=== PATIENT | female | born 1970 | race Caucasian/White ===

== ENCOUNTER → 2016-09-23 | Outpatient (CLI) | payer OTHER ==
--- NOTE | 2016-09-24 11:25 | MM ---
Reason for exam: screening (asymptomatic). Last mammogram was performed 2 years and 9 months ago. History: Family history of breast cancer in mother at age 67. Took hormonal contraceptives for 2 years 1 month beginning at age 37. Physical Findings: A clinical breast exam by your physician is recommended on an annual basis and results should be correlated with mammographic findings. MG Screening Mammo w CAD Bilateral CC and MLO view(s) were taken. Prior study comparison: January 03, 2014, bilateral MG screening mammo w CAD. September 02, 2007, bilateral diagnostic digital mammog. There are scattered fibroglandular densities. There is no discrete abnormality. No significant changes when compared with prior studies. ASSESSMENT: Negative, BI-RAD 1 RECOMMENDATION: Routine screening mammogram of both breasts in 1 year.
== END ==
LOC: RADMAMWWP 15:28
PROVIDERS: ATTEND Family Medicine
DX: Z12.31 Encounter for screening mammogram for malignant neoplasm of breast (principal); Z80.3 Family history of malignant neoplasm of breast

== ENCOUNTER 2016-10-09 08:25 | Emergency (ER) | payer OTHER ==
[2016-10-09 09:02] VITALS: BP 161/100; PULSE 80; RESP 20; TEMP 98.7
--- NOTE | 2016-10-09 09:19 | XR ---
EXAMINATION TYPE: XR shoulder complete BILAT DATE OF EXAM: 10/09/2016 9:10 AM CLINICAL HISTORY: pain TECHNIQUE: Three views of the right shoulder are obtained. COMPARISON: None FINDINGS: Nondisplaced fracture suspected involving the greater humeral tuberosity. The acromioclavic ular and glenohumeral joint spaces appear within normal limits. Subcoracoid loose body noted measurin g 1.4 x 8.4 cm. The visualized ribs are intact and unremarkable. IMPRESSION: 1. Nondisplaced greater humeral tuberosity fracture. ICD 10 closed FRACTURE, INITIAL EVALUATION EXAMINATION TYPE: XR shoulder complete BILAT DATE OF EXAM: 10/09/2016 9:10 AM CLINICAL HISTORY: pain COMPARISON: NONE TECHNIQUE: Three views of the left shoulder are obtained. FINDINGS: There is no acute fracture/dislocation evident. The acromioclavicular and glenohumeral imtiaz int spaces appear within normal limits. The visualized ribs are intact and unremarkable. IMPRESSION: 1. There is no acute fracture or dislocation. ICD 10 NO FRACTURE, INITIAL EVALUATION
--- NOTE | 2016-10-09 09:41 | ED ---
Upper Extremity HPI - General Chief Complaint: Extremity Injury, Upper Stated Complaint: Fall [facility] Time Seen by Provider: 10/09/16 08:51 Source: patient, RN notes reviewed Mode of arrival: ambulatory Limitations: no limitations - History of Present Illness Initial Comments: 46-year-old female presents emergency Department with chief complaint of right shoulder pain, left shoulder pain. Patient states she tripped over signed fell. Patient states that she fell into a wall. Patient has primary right shoulder pain but some LOC. Patient had priors shoulder surgery. Patient states that she did not hit her head no LOC. No paresthesias. - Related Data Home Medications Medication Instructions Recorded Confirmed Metoprolol Succinate (ER) [Toprol 50 mg PO HS 09/04/10/09/16 Xl] Previous Rx's Medication Instructions Recorded traMADol HCl [Ultram] 50 mg PO Q6H PRN #20 tab 10/09/16 Allergies Allergy/AdvReac Type Severity Reaction Status Date / Time codeine AdvReac Nausea & Verified 10/09/16 09:30 Vomiting hydrocodone bitartrate AdvReac Nausea & Verified 10/09/16 09:30 [From [place]] Vomiting Review of Systems ROS Statement: Those systems with pertinent positive or pertinent negative responses have been documented in the HPI. ROS Other: All systems not noted in ROS Statement are negative. Past Medical History Past Medical History: Hypertension Additional Past Medical History / Comment(s): PCOS, urinary incontinence History of Any Multi-Drug Resistant Organisms: None Reported Past Surgical History: Bariatric Surgery, Cholecystectomy Additional Past Surgical History / Comment(s): left rotator cuff, bicep tear right arm, lap band Past Anesthesia/Blood Transfusion Reactions: Motion Sickness, Postoperative Nausea & Vomiting (PONV) Additional Past Anesthesia/Blood Transfusion Reaction / Comment(s): mother- ileus post op Past Psychological History: No Psychological Hx Reported Smoking Status: Never smoker Past Alcohol Use History: Occasional Past Drug Use History: None Reported - Past Family History Mother Family Medical History: Cancer General Exam Limitations: no limitations General appearance: alert, in no apparent distress Neck exam: Present: normal inspection, full ROM. Absent: tenderness, meningismus, lymphadenopathy Respiratory exam: Present: normal lung sounds bilaterally. Absent: respiratory distress, wheezes, rales, rhonchi, stridor Cardiovascular Exam: Present: regular rate, normal rhythm, normal heart sounds. Absent: systolic murmur, diastolic murmur, rubs, gallop, clicks Extremities exam: Present: other (Times with palpation of the right shoulder limited range of motion secondary pain neurovascular intact no iris deformity, left shoulder limited range of motion secondary pain no obvious deformity no ac tenderness neurovascular intact) Back exam: Present: full ROM. Absent: tenderness Course Vital Signs 10/09/16 08:54 Temperature 98.7 F Pulse Rate 80 Respiratory 20 Rate Blood Pressure 161/100 O2 Sat by Pulse 97 Oximetry Medical Decision Making - Medical Decision Making 46-year-old female presented for fall. Patient has a right humerus fracture. She'll be placed in a sling follow-up with workman's comp and orthopedic. Return parameters were discussed. Disposition Clinical Impression: Right humeral fracture, Sprain of left shoulder Disposition: HOME SELF-CARE Condition: Stable Instructions: Arm Fracture in Adults (ED) Additional Instructions: Wear sling and follow-up with workman's comp/orthopedics.Please return to the Emergency Department if symptoms worsen or any other concerns. Prescriptions: traMADol HCl [Ultram] 50 mg PO Q6H PRN #20 tab PRN Reason: Pain Time of Disposition: 09:40
== END 2016-10-09 09:57 | disposition home or self-care (01) ==
LOC: EC 08:25
DX: S42.254A Nondisplaced fracture of greater tuberosity of right humerus, initial encounter for closed fracture (principal); S43.402A Unspecified sprain of left shoulder joint, initial encounter; I10 Essential (primary) hypertension; Z79.899 Other long term (current) drug therapy; Z88.5 Allergy status to narcotic agent; W01.0XXA Fall on same level from slipping, tripping and stumbling without subsequent striking against object, initial encounter; Y92.69 Other specified industrial and construction area as the place of occurrence of the external cause; Y99.0 Civilian activity done for income or pay
CPT/HCPCS: 99283

== ENCOUNTER → 2016-10-16 | Outpatient (CLI) | payer OTHER ==
--- NOTE | 2016-10-16 16:39 | US ---
EXAMINATION TYPE: US pelvis complete transvag DATE OF EXAM: 10/16/2016 4:27 PM COMPARISON: NONE CLINICAL HISTORY: R10.9 Abd Pain R74.8 Elevated liver enzymes. TECHNIQUE: Transvaginal (TV) and Transabdominal (TA) Date of LMP: unknown, patient states she does not have regular cycles EXAM MEASUREMENTS: Uterus: 15.6 x 10.0 x 12.5 cm Endometrial Stripe: 6.5 cm Right Ovary: 3.2 x 3.3 x 2.9 cm Left Ovary: 3.1 x 2.3 x 2.2 cm 1. Uterus: Anteverted enlarged. Heterogenous echotexture. 2. Endometrium: severely thickened 3. Right Ovary: wnl 4. Left Ovary: wnl 5. Bilateral Adnexa: wnl 6. Posterior cul-de-sac: no free f luid IMPRESSION: 1. Marked irregular thickening of the endometrium. Hysteroscopy is recommended to exclude underlying malignancy. Associated uterine enlargement.
--- NOTE | 2016-10-16 16:41 | US ---
EXAMINATION TYPE: US abdomen complete DATE OF EXAM: 10/16/2016 3:59 PM COMPARISON: NONE CLINICAL HISTORY: R10.9 Abd Pain R74.8 Elevated liver enzymes. EXAM MEASUREMENTS: Liver Length: 16.6 cm Gallbladder Wall: Surgically absent cm CBD: 0.5 cm Spleen: 11.5 cm Right Kidney: 10.0 x 4.4 x 5.7 cm Left Kidney: 10.6 x 5.7 x 5.9 cm large patient body habitus Pancreas: wnl Liver: difficult to penetrate Gallbladder: Surgically absent CBD: wnl Spleen: wnl Right Kidney: No hydronephrosis or masses seen Left Kidney: No hydronephrosis or masses seen Upper IVC: wnl Abd Aorta: wnl The liver is coarse in its overall echo appearance. The intrahepatic portion of the IVC and proximal abdominal aorta are within normal limits. There is no evidence of cholelithiasis. Common bile duct is unremarkable. The visualized portions of the pancreas are homogenous. The spleen is unremarkable . Kidneys are symmetric and free of hydronephrosis. No renal lesions are seen. IMPRESSION: 1. Coarse echo appearance throughout the liver which may reflect fatty hepatic infiltration. Examinat ion limited for visualization of underlying lesions.
== END | disposition home or self-care (01) ==
LOC: RADUSWWP 15:37
PROVIDERS: ATTEND Family Medicine
DX: N85.2 Hypertrophy of uterus (principal); R93.8 Abnormal findings on diagnostic imaging of other specified body structures; R93.2 Abnormal findings on diagnostic imaging of liver and biliary tract; R10.9 Unspecified abdominal pain; R74.8 Abnormal levels of other serum enzymes; Z88.5 Allergy status to narcotic agent
CPT/HCPCS: 76700; 76830; 76856

== ENCOUNTER → 2016-11-12 | Outpatient (CLI) | payer OTHER ==
--- NOTE | 2016-11-12 08:04 | MR ---
EXAMINATION TYPE: MR shoulder LT wo con DATE OF EXAM: 11/12/2016 7:54 AM COMPARISON: Plain films of the shoulder dated 10/24/2016 HISTORY: Lt shoulder pain, weakness, decreased range of motion TECHNIQUE: Multiplanar, multisequence imaging of the left shoulder is performed without contrast. FINDINGS: There is no evidence of an os acromiale. There is [id number] hypertrophic and inflammatory changes in the left AC joint. There is a Hill-Sachs deformity as well as a soft [place]. This is secondary to a previous dislocatio n of the left shoulder. There is tendinosis involving the supraspinatus tendon. No definite rotator cuff tear is seen. There is some decentering of the humeral head with respect to the glenoid. There is a tear in the anterior labrum in addition to the soft [place] involving the inferior labrum. The biceps tendon is normally situated within the biceps tendon groove. There is an intrasubstance te ar of the biceps tendon at the level of the biceps anchor. IMPRESSION: 1. SEQUELA OF PREVIOUS SHOULDER DISLOCATION INCLUDING A HILL-SACHS DEFORMITY AND SOFT BANKART LESION. 2. UNDISPLACED TEAR OF THE ANTERIOR GLENOID LABRUM. 3. INTRASUBSTANCE TEAR OF THE BICEPS TENDON AT THE LEVEL OF THE BICEPS ANCHOR. 4. TENDINOSIS OF THE SUPRASPINATUS TENDON. 5. MILD TO MODERATE HYPERTROPHIC AND INFLAMMATORY CHANGE IN THE LEFT AC JOINT.
== END | disposition home or self-care (01) ==
LOC: RADMRIMAIN 07:16
PROVIDERS: ATTEND Orthopaedic Surgery
DX: S43.005S Unspecified dislocation of left shoulder joint, sequela (principal); S46.212A Strain of muscle, fascia and tendon of other parts of biceps, left arm, initial encounter; S43.402A Unspecified sprain of left shoulder joint, initial encounter; M21.922 Unspecified acquired deformity of left upper arm; M67.912 Unspecified disorder of synovium and tendon, left shoulder; M89.312 Hypertrophy of bone, left shoulder; M89.8X1 Other specified disorders of bone, shoulder

== ENCOUNTER → 2017-01-28 | Outpatient (CLI) | payer OTHER ==
[2017-01-28 13:14] LABS: EKG EKG PERFORMED
[2017-01-28 13:44] LABS: Anion Gap 11 mmol/L; Carbon Dioxide 24 mmol/L (22-30); Chloride 108 mmol/L (98-107); Sodium 143 mmol/L (137-145)
[2017-01-28 13:52] LABS: Anisocytosis Slight; Basophils % (A) 1 %; CH 24.3; CHCM 28.8; Eosinophils # (A) 0.2 k/uL (0-0.7); Eosinophils % (A) 3 %; HCT 38.1 % (34.0-46.0); HDW 3.05; HGB 10.9 gm/dL (11.4-16.0); Hypochromasia Marked; Luc # (Auto) 0.15; Luc % (Auto) 2; Lymphocytes # (A) 1.7 k/uL (1.0-4.8); Lymphocytes % (A) 22 %; MCH 24.2 pg (25.0-35.0); MCHC 28.7 g/dL (31.0-37.0); MCV 84.6 fL (80.0-100.0); Monocytes # (A) 0.4 k/uL (0-1.0); Monocytes % (A) 5 %; Neutrophils # (A) 5.2 k/uL (1.3-7.7); Neutrophils % (A) 67 %; RDW 16.7 % (11.5-15.5); WBC 7.7 k/uL (3.8-10.6); WBC (Perox) 7.72
== END | disposition home or self-care (01) ==
LOC: LABWHC1 13:01
PROVIDERS: ATTEND Orthopaedic Surgery
DX: Z01.818 Encounter for other preprocedural examination (principal); R00.1 Bradycardia, unspecified
CPT/HCPCS: 36415; 80051; 85025; 93005

== ENCOUNTER 2017-01-30 05:56 | Day surgery (SDC) | payer OTHER ==
[~2017-01-30 05:56] MED LIST: DEXAMETHASONE SOD PHOSPHATE 10 MG/ML 1 ML VIAL IV ONE; HYDROmorphone 1 MG/ML 1 ML SYRINGE IVP PRN; LACTATED RINGERS 1,000 ML IV SCH; ONDANSETRON 4 MG/2 ML VIAL IVP ONE; ceFAZolin 2 GM in SODIUM CHLORIDE 0.9% 100 ML IVPB ONE
[2017-01-30 06:28] VITALS: RESP 16
[2017-01-30] MEDS ORDERED: LIDOCAINE 1% 20 ML VIAL (10MG/ML) FOR IV START INTRADERMA ONE (06:39)
[2017-01-30] MEDS ORDERED: MIDAZOLAM 2 MG/2 ML VIAL IV ONE (07:09)
[2017-01-30] MEDS ORDERED: fentaNYL (PF) 50 MCG/ML 2 ML AMP IV ONE (07:10)
--- NOTE | 2017-01-30 07:19 | P.HPOR ---
History of Present Illness H&P Date: 01/30/17 Chief Complaint: Left shoulder pain 46-year-old patient seen with progressive left shoulder pain. After treatment options were discussed she elected to proceed with arthroscopy. Past Medical History Past Medical History: Hypertension Additional Past Medical History / Comment(s): PCOS, History of Any Multi-Drug Resistant Organisms: None Reported Past Surgical History: Bariatric Surgery, Bladder Surgery, Cholecystectomy, Hysterectomy, Orthopedic Surgery Additional Past Surgical History / Comment(s): left rotator cuff, bicep tear right arm, lap band, BLADDER SUSPENSION Past Anesthesia/Blood Transfusion Reactions: Family History of Problems w/ Anesthesia, Motion Sickness, Postoperative Nausea & Vomiting (PONV) Additional Past Anesthesia/Blood Transfusion Reaction / Comment(s): mother- ileus post op Past Psychological History: No Psychological Hx Reported Smoking Status: Never smoker Past Alcohol Use History: Occasional Past Drug Use History: None Reported - Past Family History Mother Family Medical History: Cancer Medications and Allergies Home Medications Medication Instructions Recorded Confirmed Type Metoprolol Succinate (ER) [Toprol 50 mg PO HS 09/05/15 01/30/17 History Xl] Allergies Allergy/AdvReac Type Severity Reaction Status Date / Time codeine AdvReac Nausea & Verified 01/30/17 06:25 Vomiting Physical Examination Osteopathic Statement: *. No significant issues noted on an osteopathic structural exam other than those noted in the History and Physical/Consult. - Shoulder left Tenderness with palpation: anterior, bicipital groove ROM: abduction: 80 degrees ROM: forward flexion: 80 degrees ROM: external rotation: 30 degrees Strength: forward flexion: 4/5 Strength: extension: 4/5 Strength: external rotation: 3/5 Tests: internal impingement tests: positive Results X-ray left shoulder: no acute fracture MRI left shoulder: Labral tear, partial biceps tendon tear Assessment and Plan Plan: Assessment: Left shoulder impingement with labral tear and partial biceps tendon tear Plan: Left shoulder arthroscopy with subacromial decompression, labral debridement versus repair, probable biceps tendon release and debridement
[2017-01-30] MEDS ORDERED: ROPIVACAINE 5 MG/ML 30 ML VIAL ONE (07:25)
[2017-01-30] MEDS ORDERED: ePHEDrine SULFATE/0.9% NACL/PF 50 MG/5 ML SYRINGE IV ONE (07:25)
[2017-01-30] MEDS ORDERED: SUCCINYLCHOLINE CHLORIDE 100 MG/5 ML SYR IV ONE (07:25)
[2017-01-30] MEDS ORDERED: PROPOFOL 10 MG/ML 20 ML VIAL IV ONE (07:25)
[2017-01-30] MEDS ORDERED: LIDOCAINE 1% INJ 10MG/ML (20 ML MDV) ONE (07:25)
[2017-01-30] MEDS ORDERED: fentaNYL (PF) 50 MCG/ML 2 ML AMP ONE (07:25)
[2017-01-30] MEDS ORDERED: MIDAZOLAM 2 MG/2 ML VIAL ONE (07:25)
[2017-01-30] MEDS ORDERED: LIDOCAINE 2%-EPI 1:100,000 20 ML VIAL ONE (07:25)
[2017-01-30] MEDS ORDERED: LACTATED RINGERS 1,000 ML IV ONE (08:05)
[2017-01-30 08:52] VITALS: TEMP 97.4
--- NOTE | 2017-01-30 08:52 | P.OP ---
Date of Procedure: 01/30/17 Preoperative Diagnosis: Left shoulder impingement Postoperative Diagnosis: 1. Left shoulder impingement 2. 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 Left shoulder superficial anterior/superior labral tear 4. Left shoulder partial biceps tendon tear 5. Left shoulder superficial rotator cuff tear Procedure(s) Performed: 1. Left shoulder arthroscopic subacromial decompression 2. Left shoulder arthroscopic chondroplasty humeral head 3. Left shoulder arthroscopic debridement labral tear 4. Left shoulder arthroscopic biceps tenotomy 5. Left shoulder arthroscopic debridement superficial partial rotator cuff tear Implants: Anesthesia: ELISABETH, regional Surgeon: Leonel Hager Estimated Blood Loss (ml): 10 Pathology: none sent Condition: stable Disposition: PACU Indications for Procedure: 47-year-old patient seen with left shoulder pain. After having treatment options discussed, she elected to proceed with arthroscopy. Operative Findings: see description of procedure Description of Procedure: Patient underwent a shoulder block by department of anesthesia. The patient was then taken to the operative suite. The patient underwent a general anesthetic by the department of anesthesia. The patient was placed into a lateral position and secured. There was appropriate padding of the bony prominence. Left shoulder was then prepped and draped in normal sterile orthopedic fashion. We placed the extremity in 10 pounds of longitudinal traction. A posterior incision was now made for a posterior working portal site. The trocar and cannula were inserted into the glenohumeral joint. Arthroscopy was initiated. Spinal needle was now inserted anteriorly, to ascertain the anterior working portal site. An incision was now made in that area, a trocar was inserted followed by a probe. There were areas of grade 4 chondromalacia involving the humeral head with exposed bone osteochondral tears. There were grade 2/3, she changes of the glenoid fossa no osteochondral tears were present there. There was superficial tearing of the anterior superior labrum. Partial tearing long head biceps tendon. Rotator cuff appeared intact from glenohumeral side. There were no loose bodies. I performed an arthroscopic chondroplasty of the humeral head getting down to stable osteochondral tissue. I performed an arthroscopic biceps tenotomy. I debrided the labral tears down to stable tissue. The residual labrum was probed and found to be stable. The residual osteochondral surface of the humeral head was found to be stable although again we noted areas of exposed bone. At this point instruments removed from the glenohumeral joint. Utilizing the posterior working portal site, the trocar and cannula were inserted into the subacromial space. Arthroscopy initiated. I made an incision 2 fingerbreadths lateral to the acromion. I introduced my trocar followed by my ArthroCare ablator. I now began ablating thick subacromial bursal tissue, which exposed the undersurface of the anterior acromion. This was diminished subacromial space. There was a very prominent anterior acromion. A motorized bur was introduced and a subacromial decompression was performed. I noted good decompression of subacromial space at this point. I turned my attention to the rotator cuff tendon. There was some superficial tearing distal supraspinatus. I debrided that with a motorized shaver. The residual rotator cuff looks stable. I injected 1 mL Allogen intra-articular. Instruments now removed from the portal sites. All portal sites were approximated with nylon suture. Sterile dressings were applied followed by a shoulder immobilizer. David MATTHEWS assisted with the procedure. The patient was awakened, transferred to a bed, and taken to recovery in stable condition.
[2017-01-30] MEDS ORDERED: ENALAPRILAT 1.25 MG/ML 1 ML VIAL IVP ONE ×2 (10:07→10:22)
[2017-01-30 11:02] VITALS: BP 137/81; PULSE 74
--- NOTE | 2017-01-30 16:09 | P.ONQ ---
Anesthesiology Proc Note - PNB - Peripheral Nerve Block Performed Left Interscalene Single Time Out Performed: Yes Procedure Start Time: :16 Procedure Stop Time: : Indication: Acute Post-Operative Pain, Requested by physician Preparation: Sterile Prep Position: Supine Needle Size: 100mm (4") Needle Gauge: 21 Technique: Ultrasound Injectate: 0.5% Ropivacaine (see comment for volume) (ropi .5% 20cc plus xylo 2% with epi 15cc) Blood Aspirated: No Pain Paresthesia on Injection Noted: No Resistance on Injection: Normal Events: Uneventful and Well Tolerated
== END 2017-01-30 11:39 | disposition home or self-care (01) ==
LOC: OR 05:56
PROVIDERS: ATTEND Orthopaedic Surgery
DX: M75.112 Incomplete rotator cuff tear or rupture of left shoulder, not specified as traumatic (principal); M75.42 Impingement syndrome of left shoulder; M94.8X1 Other specified disorders of cartilage, shoulder; M94.212 Chondromalacia, left shoulder; M67.88 Other specified disorders of synovium and tendon, other site; I10 Essential (primary) hypertension; E28.2 Polycystic ovarian syndrome; Z98.84 Bariatric surgery status; Z90.710 Acquired absence of both cervix and uterus; Z79.899 Other long term (current) drug therapy
CPT/HCPCS: 64415; 29827; 29826; C1765; J2250; J1100; J0690; J2405; J2001; J3010; J2795; J0330; J2704

== ENCOUNTER → 2017-04-01 | Outpatient (CLI) | payer OTHER ==
--- NOTE | 2017-04-01 10:06 | MR ---
EXAMINATION TYPE: MR shoulder RT wo con DATE OF EXAM: 04/01/2017 COMPARISON: plain film 01/29/2017 HISTORY: Right shoulder pain TECHNIQUE: Multiplanar, multisequence imaging of the shoulder is performed without contrast. FINDINGS: Rotator Cuff: Somewhat attenuated along the anterior margin shows abnormal increased signal which may be indicative of a partial full-thickness tear Acromioclavicular Joint: Hypertrophic changes present causing minimal mass effect on the musculotendi nous junction of supraspinatus. Glenohumeral Joint: Remodeling present at the glenohumeral joint compatible with osteoarthritis. Labrum: Inferior labrum shows some linear increased signal suspicious for tear, the bony labrum shows subchondral geode formation. Suspect some labral foramen present at the superior anterior labrum. Biceps Tendon: The long head of biceps is perched anteriorly, increased signal present in the overlyi ng aponeurosis. There is some fluid signal present along the long head of biceps tendon. Bone marrow signal: Pseudocysts are present within the humeral head.. Other: Ossific densities are present along the subscapularis tendon near the musculotendinous junctio n just inferior to the coracoid process, there is associated fluid. IMPRESSION: Partial full-thickness tear suspected the anterior aspect of the insertion of the rotator cuff. Proba ble synovial osteochondromatosis, loose bodies. Osteoarthritic change suspected, findings suspicious for labral tear as described.
== END | disposition home or self-care (01) ==
LOC: RADMRIMAIN 08:43
PROVIDERS: ATTEND Orthopaedic Surgery
DX: M25.511 Pain in right shoulder (principal)

== ENCOUNTER → 2017-05-13 | Outpatient (CLI) | payer OTHER ==
[2017-05-13 14:35] VITALS: RESP 20; TEMP 98.2; BMI 38.9
[2017-05-13 15:11] VITALS: BP 150/93; PULSE 66
--- NOTE | 2017-05-13 15:29 | P.BASOAP ---
Subjective Progress Note Date: 05/13/17 Principal diagnosis: Morbid obesity Patient underwent laparoscopic band placement in 2005. She believes she had a 10 mL band placed at that time. She started with a weight of around 240 and is now around 2:30. She has dysphasia to vegetables, fruits, and most meats. The patient is considering emptying the band and band removal. Recently she was found to have uterine cancer. She underwent robotic-assisted hysterectomy but did require a large upper midline incision it looks like to retrieve the uterus. She now has a large bulge there and her physician told her this may represent a hernia. She is having some pain at her port site. No GERD symptoms. No dysphagia. Objective - Vital Signs Vital signs: Vital Signs Temp 98.2 F 05/13/17 14:29 Pulse 66 05/13/17 14:29 Resp 20 05/13/17 14:29 BP 150/93 05/13/17 14:29 Pulse Ox Intake & Output 05/12/17 05/13/17 05/13/17 18:59 06:59 18:59 Weight 106.05 kg - Exam Abdomen: Soft, nondistended, large upper midline hernia, defect in the fascia is oval in shape. It is difficult to feel the margin of the fascia because of the port on the left side. I suspect the defect is approximately 6 cm wide by approximately 10 cm in length. Assessment/Plan (1) Morbid obesity Narrative/Plan: Will into the patient's band at this time. Options of hernia repair and band removal were discussed. There are advantages and disadvantages both to laparoscopic and open approach. Combining both surgeries may be technically difficult in a laparoscopic setting. Patient will follow-up with me in the office after her upcoming shoulder surgery to further discuss and schedule the band removal and hernia repair. The patient's lap band port was palpated. The site was aseptically prepped. 1% lidocaine was infiltrated into the subcutaneous tissues through a diabetic syringe. The Restrepo needle was advanced into the port. Aspiration took place. A total of 8 ml of fluid was evacuated. Pressure was held and a sterile dressing was applied. Plan: Date: 05/13/17 Initial Weight: 106.05 kg Initial BMI: 38.9 Current Weight: 106.05 kg Current BMI: 38.9 Type of Surgery: Total Volume in Band: 0 Previous Volume: 9 Volume Removed: 9 Volume Added: 0 Band Size:
== END | disposition home or self-care (01) ==
LOC: BARWHC3 14:21
PROVIDERS: ATTEND Surgery
DX: E66.01 Morbid (severe) obesity due to excess calories (principal); Z68.38 Body mass index [BMI] 38.0-38.9, adult
CPT/HCPCS: 99202

== ENCOUNTER → 2017-06-19 | Outpatient (CLI) | payer OTHER ==
[2017-06-19 11:32] LABS: Anisocytosis Slight; Basophils % (A) 1 %; Eosinophils # (A) 0.2 k/uL (0-0.7); Eosinophils % (A) 4 %; HCT 44.5 % (34.0-46.0); HGB 13.1 gm/dL (11.4-16.0); Hypochromasia Marked; Lymphocytes # (A) 1.5 k/uL (1.0-4.8); Lymphocytes % (A) 29 %; MCHC 29.3 g/dL (31.0-37.0); MCV 92.1 fL (80.0-100.0); Mean Platelet Volume 8.7; Monocytes # (A) 0.4 k/uL (0-1.0); Monocytes % (A) 8 %; Neutrophils # (A) 2.9 k/uL (1.3-7.7); Neutrophils % (A) 56 %; Platelet Count 222 k/uL (150-450); RBC 4.83 m/uL (3.80-5.40); RDW 17.4 % (11.5-15.5); WBC 5.3 k/uL (3.8-10.6)
[2017-06-19 11:43] LABS: Potassium 4.6 mmol/L (3.5-5.1)
== END ==
LOC: LABWHC1 11:02
PROVIDERS: ATTEND Orthopaedic Surgery
DX: Z01.818 Encounter for other preprocedural examination (principal); M75.41 Impingement syndrome of right shoulder
CPT/HCPCS: 36415; 80051; 85025

== ENCOUNTER → 2017-06-19 | Outpatient (CLI) | payer OTHER ==
--- NOTE | 2017-06-19 11:59 | XR ---
EXAMINATION TYPE: XR chest 2V DATE OF EXAM: 06/19/2017 COMPARISON: NONE TECHNIQUE: PA and lateral views submitted. HISTORY: Cough FINDINGS: The lungs are clear and there is no pneumothorax, pleural effusion, or focal pneumonia. Hypertrophi c change of the spine. Postsurgical change right upper quadrant. No overt failure. IMPRESSION: 1. No acute process.
== END | disposition home or self-care (01) ==
LOC: RADXRMAIN 11:28
PROVIDERS: ATTEND Family Medicine
DX: R05 Cough (principal)
CPT/HCPCS: 71046

== ENCOUNTER 2017-06-26 11:18 | Day surgery (SDC) | payer OTHER ==
[2017-05-26 11:37] VITALS: BMI 36.6
--- NOTE | 2017-06-25 15:18 | HP ---
HISTORY AND PHYSICAL REASON FOR ADMISSION: Surgery scheduled for 06/26/2017. Lien Alvarenga is a 47-year-old patient seen with right shoulder pain. We discussed treatment options. She elected to proceed with arthroscopy. Consent regarding the procedure obtained. PAST MEDICAL HISTORY: Hypertension. PAST SURGICAL HISTORY: Bilateral shoulder arthroscopy, lap band surgery. MEDICATIONS: Toprol, [place]. ALLERGIES: CODEINE WHICH CAUSES ITCHING. SOCIAL HISTORY: Patient denies tobacco use. PHYSICAL EXAMINATION: Evaluation of the right shoulder flexion 130 degrees, abduction is 90 degrees, external rotation is 20 degrees with pain and weakness. Tenderness along the anterior lateral acromion and rotator cuff insertion site. Impingement positive at 90 degrees. Distal neurovascular exam is intact. RADIOGRAPHS: Right shoulder radiographs reveal evidence for a healed tuberosity fracture and a right shoulder MRI revealed a partial rotator cuff tendon tear as well as labral tear. IMPRESSION: Right shoulder impingement with rotator cuff tear/labral tear. PLAN: Right shoulder arthroscopy with subacromial decompression, possible arthroscopic rotator cuff repair and debridement. Scheduled for 06/26/2017. MMODL / IJN: [id number] /
[~2017-06-26 11:18] MED LIST changes: +HYDROmorphone 0.5 MG/0.5 ML SYRINGE IVP PRN; -HYDROmorphone 1 MG/ML 1 ML SYRINGE IVP PRN; +LIDOCAINE 1% 20 ML VIAL (10MG/ML) FOR IV START INTRADERMA PRN; +MIDAZOLAM 2 MG/2 ML VIAL IV PRN; +SCOPOLAMINE 1.5MG/72HR PATCH TRANSDERM ONE; -ceFAZolin 2 GM in SODIUM CHLORIDE 0.9% 100 ML IVPB ONE; +ceFAZolin IN SWFI 2 GM/20 ML SYRINGE IVP ONE
[2017-06-26] MEDS ORDERED: MIDAZOLAM 2 MG/2 ML VIAL ONE (13:18)
[2017-06-26] MEDS ORDERED: NEOSTIGMINE 1 MG/ML 10 ML VIAL ONE (13:18)
[2017-06-26] MEDS ORDERED: SUCCINYLCHOLINE CHLORIDE 100 MG/5 ML SYR IV ONE (13:18)
[2017-06-26] MEDS ORDERED: LIDOCAINE 1% INJ 10MG/ML (20 ML MDV) ONE (13:18)
[2017-06-26] MEDS ORDERED: PROPOFOL 10 MG/ML 20 ML VIAL IV ONE (13:18)
[2017-06-26] MEDS ORDERED: GLYCOPYRROLATE 0.2 MG/ML 2 ML VIAL ONE (13:18)
[2017-06-26] MEDS ORDERED: fentaNYL (PF) 50 MCG/ML 2 ML AMP ONE (13:18)
[2017-06-26] MEDS ORDERED: ROCURONIUM BROMIDE 10 MG/ML 10 ML VIAL IV ONE (13:18)
[2017-06-26] MEDS ORDERED: LACTATED RINGERS 1,000 ML IV ONE (13:56)
--- NOTE | 2017-06-26 14:40 | P.OP ---
Date of Procedure: 06/26/17 Preoperative Diagnosis: Right shoulder impingement Postoperative Diagnosis: 1. Right shoulder superficial rotator cuff tear 2. Right shoulder impingement 3. Right shoulder partial long head biceps tendon tear 4. Right shoulder superior labral tear 5. 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 Right shoulder arthroscopic debridement partial rotator cuff tear 2. Right shoulder arthroscopic subacromial decompression 3. Right shoulder arthroscopic biceps tenotomy 4. Right shoulder arthroscopic debridement superficial rotator cuff tear 5. Right shoulder arthroscopic chondroplasty glenoid Implants: none Anesthesia: GETA, regional (Interscalene block) Surgeon: Leonel Hager Estimated Blood Loss (ml): 10 Pathology: none sent Condition: stable Disposition: PACU Indications for Procedure: 47-year-old patient seen with progressive right shoulder pain. After treatment options were discussed, she elected to proceed with arthroscopy. Operative Findings: See description of procedure Description of Procedure: Patient underwent a shoulder block by department of anesthesia. The patient was then taken to the operative suite. The patient underwent a general anesthetic by the department of anesthesia. The patient was placed into a lateral position and secured. There was appropriate padding of the bony prominence. Right shoulder was then prepped and draped in normal sterile orthopedic fashion. We placed the extremity in 10 pounds of longitudinal traction. A posterior incision was now made for a posterior working portal site. The trocar and cannula were inserted into the glenohumeral joint. Arthroscopy was initiated. Spinal needle was now inserted anteriorly, to ascertain the anterior working portal site. An incision was now made in that area, a trocar was inserted followed by a probe. There was superficial tearing of the superior labrum. There was partial tearing long head biceps tendon. There were grade 1/2 chondromalacia changes of the anterior portion glenoid fossa with small osteochondral tears present. There were no loose bodies. I performed an arthroscopic biceps tenotomy. I debrided the superficial labral tears down to stable tissue. I performed a chondroplasty of the anterior glenoid down to stable tissue. The residual osteochondral surface was stable residual labrum was stable. At this point instruments removed from the glenohumeral joint. Utilizing the posterior working portal site, the trocar and cannula were inserted into the subacromial space. Arthroscopy initiated. I made an incision 2 fingerbreadths lateral to the acromion. I introduced my trocar followed by my ArthroCare ablator. I now began ablating thick subacromial bursal tissue, which exposed the undersurface of the anterior acromion. This was diminished subacromial space. There was some anterior spurring of the anterior acromion. I performed a subacromial decompression. There was good subacromial space present after the decompression. I turned my attention to the rotator cuff tendon. There was some superficial tearing along the distal supraspinatus area. I debrided that with a motorized shaver. I now thoroughly probed the area and found no obvious perforation. The residual tendon tissue appeared robust and stable. Instruments now removed from the portal sites. All portal sites were approximated with nylon suture. Sterile dressings were applied followed by a sling. The patient was awakened, transferred to a bed, and taken to recovery in stable condition.
[2017-06-26 14:42] VITALS: TEMP 98.2
[2017-06-26 15:57] VITALS: RESP 18
[2017-06-26 16:42] VITALS: BP 130/81; PULSE 59
--- NOTE | 2017-06-27 08:35 | P.ONQ ---
Anesthesiology Proc Note - PNB - Peripheral Nerve Block Performed Right Interscalene Single Time Out Performed: Yes Procedure Start Time: 12:31 Procedure Stop Time: 12:39 Indication: Acute Post-Operative Pain, Requested by physician Sedation Type: Sedate with meaningful contact maintained Preparation: Sterile Prep Catheter: None Needle Size: 50mm (2") Needle Gauge: 21 Technique: Ultrasound Injectate: 0.5% Ropivacaine (see comment for volume) (ropi .5% 30cc) Blood Aspirated: No Pain Paresthesia on Injection Noted: No Resistance on Injection: Normal Events: Uneventful and Well Tolerated
== END 2017-06-26 17:06 | disposition home or self-care (01) ==
LOC: OR 11:18
PROVIDERS: ATTEND Orthopaedic Surgery
DX: M75.111 Incomplete rotator cuff tear or rupture of right shoulder, not specified as traumatic (principal); M75.41 Impingement syndrome of right shoulder; S46.111A Strain of muscle, fascia and tendon of long head of biceps, right arm, initial encounter; S43.491A Other sprain of right shoulder joint, initial encounter; X58.XXXA Exposure to other specified factors, initial encounter; M94.211 Chondromalacia, right shoulder; M19.011 Primary osteoarthritis, right shoulder; I10 Essential (primary) hypertension; Z98.84 Bariatric surgery status; Z79.891 Long term (current) use of opiate analgesic; Z79.899 Other long term (current) drug therapy; Z88.5 Allergy status to narcotic agent
CPT/HCPCS: 64415; 29827; 29826; J2250; J1100; J2710; J0690; J2405; J2001; J3010; J0330; J2704

== ENCOUNTER 2017-08-11 06:29 | Inpatient (IN) | payer OTHER ==
[2017-08-06 13:23] VITALS: BMI 35.5
[~2017-08-11 06:29] MED LIST changes: +HEPARIN SODIUM,PORCINE 5,000 UNIT/ML 1 ML VIAL SQ ONE; -LACTATED RINGERS 1,000 ML IV SCH; -LIDOCAINE 1% 20 ML VIAL (10MG/ML) FOR IV START INTRADERMA PRN; -MIDAZOLAM 2 MG/2 ML VIAL IV PRN; -SCOPOLAMINE 1.5MG/72HR PATCH TRANSDERM ONE
[2017-08-11] MEDS ORDERED: LIDOCAINE 1% 20 ML VIAL (10MG/ML) FOR IV START INTRADERMA ONE (07:04)
[2017-08-11] MEDS: LACTATED RINGERS 1,000 ML IV SCH (07:04)
[2017-08-11] MEDS ORDERED: SCOPOLAMINE 1.5MG/72HR PATCH TRANSDERM ONE (07:05)
[2017-08-11] MEDS ORDERED: fentaNYL (PF) 50 MCG/ML 2 ML AMP IV ONE (07:12)
[2017-08-11] MEDS ORDERED: MIDAZOLAM 2 MG/2 ML VIAL IV ONE (07:12)
[2017-08-11] MEDS ORDERED: BUPIVACAINE (PF) 0.5% 50 ML, HYDROMORPHONE (PF) 5 MG in SODIUM CHLORIDE 0.9% 200 ML EPIDURAL PRN (07:30)
[2017-08-11] MEDS ORDERED: NALOXONE 0.4 MG/ML 1 ML VIAL IV PRN ×2 (07:30→10:58)
--- NOTE | 2017-08-11 07:36 | P.GSHP ---
History of Present Illness H&P Date: 08/11/17 Chief Complaint: Repair incisional hernia with lap band removal Patient here today for repair of a large incisional hernia. She was seen in the office on 124 for evaluation of this hernia. She was previously scheduled had to be canceled because of insurance approval. She is having worsening reflux symptoms as well as abdominal pain. The patient's lap band port is present in the hernia sac related to a prior gynecologic procedure. The hernia has been enlarging. It is uncomfortable. Past Medical History Past Medical History: Hypertension Additional Past Medical History / Comment(s): PCOS, urinary incontinence History of Any Multi-Drug Resistant Organisms: None Reported Past Surgical History: Bariatric Surgery, Cholecystectomy Additional Past Surgical History / Comment(s): left rotator cuff, bicep tear right arm, lap band, hysterectomy January 2017 Past Anesthesia/Blood Transfusion Reactions: Motion Sickness, Postoperative Nausea & Vomiting (PONV) Additional Past Anesthesia/Blood Transfusion Reaction / Comment(s): mother- ileus post op Smoking Status: Never smoker - Past Family History Mother Family Medical History: Cancer Medications and Allergies Home Medications Medication Instructions Recorded Confirmed Type Metoprolol Succinate (ER) [Toprol 50 mg PO HS 09/05/15 08/06/17 History Xl] HYDROcodone/APAP 5-325MG [[place] 1 tab PO Q6HR PRN 08/06/17 08/06/17 History 5-325] Allergies Allergy/AdvReac Type Severity Reaction Status Date / Time codeine AdvReac Nausea & Verified 08/11/17 06:41 Vomiting and itching Surgical - Exam Vital Signs Temp Pulse Resp BP Pulse Ox 97.9 F 53 L 18 175/90 100 08/11/17 06:54 08/11/17 06:54 08/11/17 06:54 08/11/17 06:54 08/11/17 06:54 Physical exam: General: Well-developed, well-nourished HEENT: Normocephalic, sclerae nonicteric Abdomen: Nontender, nondistended, large upper abdominal hernia with port present fascial defect with 8-10 cm Extremities: No edema Neuro: Alert and oriented Assessment and Plan (1) Incisional hernia Narrative/Plan: Will proceed with operative repair of this hernia with simultaneous removal of the patient's lap band. Risks of bleeding, infection, recurrence, bowel injury , adhesions, fistulization, gastric perforation, scarring, respiratory and cardiac complications. Patient understands and wishes to proceed. Current Visit: Yes Status: Acute Code(s): K43.2 - INCISIONAL HERNIA WITHOUT OBSTRUCTION OR GANGRENE SNOMED Code(s): 975287607
[2017-08-11] MEDS ORDERED: ROCURONIUM BROMIDE 10 MG/ML 10 ML VIAL IV ONE (07:47)
[2017-08-11] MEDS ORDERED: SUCCINYLCHOLINE CHLORIDE 100 MG/5 ML SYR IV ONE (07:47)
[2017-08-11] MEDS ORDERED: LIDOCAINE 1% INJ 10MG/ML (20 ML MDV) ONE (07:47)
[2017-08-11] MEDS ORDERED: PROPOFOL 10 MG/ML 20 ML VIAL IV ONE (07:47)
[2017-08-11] MEDS ORDERED: GLYCOPYRROLATE 0.2 MG/ML 2 ML VIAL ONE (07:47)
[2017-08-11] MEDS ORDERED: NEOSTIGMINE 1 MG/ML 10 ML VIAL ONE (07:47)
[2017-08-11] MEDS ORDERED: MIDAZOLAM 2 MG/2 ML VIAL ONE (07:47)
[2017-08-11] MEDS ORDERED: PHENYLEPHRINE-0.9% NACL SYG 1 MG/10 ML SYRINGE ONE (07:47)
[2017-08-11] MEDS ORDERED: ePHEDrine SULFATE/0.9% NACL/PF 50 MG/5 ML SYRINGE IV ONE (07:47)
[2017-08-11] MEDS ORDERED: LACTATED RINGERS 1,000 ML IV ONE (08:46)
[2017-08-11] MEDS ORDERED: HYDROmorphone 0.5 MG/0.5 ML SYRINGE IVP PRN (10:58)
[2017-08-11] MEDS ORDERED: ONDANSETRON 4 MG/2 ML VIAL IVP PRN (10:58)
[2017-08-11] MEDS ORDERED: ACETAMINOPHEN TAB 325 MG TAB PO PRN (10:58)
--- NOTE | 2017-08-11 11:07 | P.OP ---
Date of Procedure: 08/11/17 Procedure(s) Performed: PREOPERATIVE DIAGNOSIS: Large incisional hernia, morbid obesity, band intolerance POSTOPERATIVE DIAGNOSIS: As above PROCEDURE: Incisional hernia repair with mesh, open removal LAP-BAND and components SURGEON: João EBL: Minimal ANESTHESIA: General COMPLICATIONS: None OPERATIVE PROCEDURE: Patient was brought in place never table in the supine position. The patient was placed under general anesthesia. A Nesbitt catheter was placed. The abdomen was prepped and draped in usual sterile fashion. The previous midline scar was reexcised using the scalpel. Subcutaneous tissues were divided using electrocautery. The large hernia sac was carefully dissected. This was later fully excised. His was sent to pathology for close examination. The fascia circumferentially was cleared of the overlying adipose tissue. The port was able to be excised as a portion of the hernia sac. Using combination of blunt dissection electrocautery and sharp dissection the band itself was then removed in 2 portions. No evidence of gastric erosion was seen. The defect in the fascia measured 8 x 10 7 m. The 11 x 14 cm mesh was placed beneath the exposed fascia and circumferentially sutured to the fascia using trans-fascial 0 Ethibond sutures. The midline fascia was then able to be reapproximated using interrupted [id number] sutures. A drain was placed anterior to the fascial closure exiting in the left lateral location. The subcutaneous tissues were closed using 3-0 Vicryl sutures and the skin was closed using elen. Sterile dressings were applied. DISPOSITION: Stable to recovery room
--- NOTE | 2017-08-11 13:24 | P.CONS ---
History of Present Illness - Reason for Consult Consult date: 08/11/17 medical management and hypertension - Chief Complaint s/p hernia repair and lap band removal - History of Present Illness 47 y/o female that was admitted after lap band removal and hernia repair. Patient with hx of obesity and hypertension. Now with some complaints of pain in surgical site. No nausea. Review of Systems no fever, no nausea, no chest pain, no palpitations,no fever all 10 systems reviewed and were negaive except what was mentioned in hpi. Past Medical History Past Medical History: Hypertension Additional Past Medical History / Comment(s): PCOS, urinary incontinence History of Any Multi-Drug Resistant Organisms: None Reported Past Surgical History: Bariatric Surgery, Cholecystectomy Additional Past Surgical History / Comment(s): left rotator cuff, bicep tear right arm, lap band, hysterectomy January 2017 Past Anesthesia/Blood Transfusion Reactions: Motion Sickness, Postoperative Nausea & Vomiting (PONV) Additional Past Anesthesia/Blood Transfusion Reaction / Comm: mother-ileus post op Past Psychological History: No Psychological Hx Reported Smoking Status: Never smoker Past Alcohol Use History: Occasional Past Drug Use History: None Reported - Past Family History Mother Family Medical History: Cancer Medications and Allergies Home Medications Medication Instructions Recorded Confirmed Type Metoprolol Succinate (ER) [Toprol 50 mg PO HS 09/05/15 08/11/17 History Xl] HYDROcodone/APAP 5-325MG [[place] 1 tab PO Q6HR PRN 08/06/17 08/11/17 History 5-325] Hydrocodone/Acetaminophen [[place] 1 - 2 each PO Q4HR PRN #30 tab 08/11/17 Rx 5-325] Allergies Allergy/AdvReac Type Severity Reaction Status Date / Time codeine AdvReac Nausea & Verified 08/11/17 11:54 Vomiting and itching Physical Exam Vitals: Vital Signs Temp Pulse Pulse Resp BP Pulse Ox 08/11/17 11:50 98.2 F 66 18 116/65 96 08/11/17 11:47 62 16 137/72 98 08/11/17 11:32 59 L 16 140/68 99 08/11/17 11:17 62 16 118/67 100 08/11/17 11:01 62 18 131/72 98 08/11/17 10:45 61 16 121/60 97 08/11/17 10:38 98.1 F 62 16 124/64 95 08/11/17 07:25 59 L 16 146/81 97 08/11/17 06:54 97.9 F 53 L 18 175/90 100 Intake and Output 08/10/17 08/11/17 08/11/17 22:59 06:59 14:59 Intake Total 1850 Output Total 315 Balance 1535 Intake: IV 1850 Output: Urine 290 Estimated Blood Loss 25 Other: Weight 99.79 kg Patient Weight 08/12/17 06:59 Weight 99.79 kg - Constitutional General appearance: no acute distress, obese - EENT Eyes: EOMI, PERRLA ENT: normal oropharynx, no thrush, no tonsillar exudates - Neck Neck: no lymphadenopathy - Respiratory Respiratory: bilateral: CTA, negative: rales, rhonchi, wheezing - Cardiovascular Rhythm: regular Heart sounds: normal: S1, S2 - Gastrointestinal General gastrointestinal: decreased bowel sounds - Integumentary Integumentary: no pale, no rash - Neurologic Neurologic: CNII-XII intact - Musculoskeletal Musculoskeletal: gait normal - Psychiatric Psychiatric: A&O x's 3, appropriate affect Assessment and Plan (1) Hypertension Narrative/Plan: controlled continue metoprolol Current Visit: Yes Status: Acute Code(s): I10 - ESSENTIAL (PRIMARY) HYPERTENSION SNOMED Code(s): 07050121 (2) Incisional hernia Narrative/Plan: s/p repair Current Visit: Yes Status: Acute Code(s): K43.2 - INCISIONAL HERNIA WITHOUT OBSTRUCTION OR GANGRENE SNOMED Code(s): 552060459 (3) Morbid obesity Narrative/Plan: s/p lap band removal Current Visit: No Status: Acute Code(s): E66.01 - MORBID (SEVERE) OBESITY DUE TO EXCESS CALORIES SNOMED Code(s): 307187646
[2017-08-11] MEDS ORDERED: diphenhydrAMINE 50 MG/ML 1 ML VIAL IVP PRN (13:48)
[2017-08-11] MEDS: D5-0.45% NACL WITH KCL 20MEQ/L 1,000 ML IV SCH ×2 (13:53→21:05)
[2017-08-11] MEDS: HEPARIN SODIUM,PORCINE 5,000 UNIT/ML 1 ML VIAL SQ SCH ×2 (17:00→23:31)
[2017-08-11] MEDS: KETOROLAC 30 MG/ML 1 ML VIAL IVP SCH (20:49)
[2017-08-11] MEDS: FAMOTIDINE 20 MG TAB PO SCH (20:52)
[2017-08-11] MEDS: DOCUSATE 100 MG CAP PO SCH (20:52)
[2017-08-11] MEDS: METOPROLOL SUCCINATE (ER) 50 MG TAB.ER.24H PO SCH (20:53)
[2017-08-11] MEDS: MORPHINE SULFATE 4 MG/ML SYRINGE IVP PRN (22:04)
[2017-08-12] MEDS: MORPHINE SULFATE 4 MG/ML SYRINGE IVP PRN ×2 (00:46→04:00)
[2017-08-12] MEDS: KETOROLAC 30 MG/ML 1 ML VIAL IVP SCH ×4 (02:00→21:07)
[2017-08-12] MEDS: D5-0.45% NACL WITH KCL 20MEQ/L 1,000 ML IV SCH ×3 (04:51→22:33)
[2017-08-12] MEDS: LACTATED RINGERS 1,000 ML IV SCH (05:42)
[2017-08-12] MEDS: FAMOTIDINE 20 MG TAB PO SCH ×2 (07:42→21:08)
[2017-08-12] MEDS: HEPARIN SODIUM,PORCINE 5,000 UNIT/ML 1 ML VIAL SQ SCH ×2 (07:42→15:15)
[2017-08-12] MEDS: DOCUSATE 100 MG CAP PO SCH ×2 (07:42→21:08)
[2017-08-12 08:22] LABS: Anion Gap 9 mmol/L; Blood Urea Nitrogen 15 mg/dL (7-17); Calcium 9.5 mg/dL (8.4-10.2); Carbon Dioxide 25 mmol/L (22-30); Chloride 100 mmol/L (98-107); Glucose 104 mg/dL (74-99); Potassium 4.7 mmol/L (3.5-5.1); Sodium 134 mmol/L (137-145)
[2017-08-12 08:26] LABS: Basophils % (A) 0 %; Eosinophils # (A) 0.1 k/uL (0-0.7); Eosinophils % (A) 1 %; HCT 37.2 % (34.0-46.0); HGB 11.1 gm/dL (11.4-16.0); Hypochromasia Moderate; Lymphocytes # (A) 1.5 k/uL (1.0-4.8); Lymphocytes % (A) 21 %; MCHC 29.9 g/dL (31.0-37.0); MCV 96.9 fL (80.0-100.0); Mean Platelet Volume 8.4; Monocytes # (A) 0.5 k/uL (0-1.0); Monocytes % (A) 7 %; Neutrophils # (A) 4.9 k/uL (1.3-7.7); Neutrophils % (A) 68 %; Platelet Count 198 k/uL (150-450); RBC 3.84 m/uL (3.80-5.40); RDW 15.4 % (11.5-15.5); WBC 7.2 k/uL (3.8-10.6)
--- NOTE | 2017-08-12 08:43 | P.PN ---
Progress Note - Text Progress Note Date: 08/12/17 Patient seen at 7:00am. Was called last night by RN on the floor. Patient complained of severe rash and hives from Epidural solution. Epidural was discontinued at midnight on 08/11. No complaints overnight.
--- NOTE | 2017-08-12 09:58 | P.PN ---
Subjective Progress Note Date: 08/12/17 Principal diagnosis: medical management pain medicine helping, she says not lasting long enough,did develop itching with a rash, epidural was discontinued, no nausea, no vomiting Objective - Vital Signs Vital signs: Vital Signs Temp 97.9 F 08/12/17 07:00 Pulse 58 L 08/12/17 07:00 Resp 18 08/12/17 07:00 BP 124/72 08/12/17 07:00 Pulse Ox 94 L 08/12/17 07:00 Intake & Output 08/11/17 08/12/17 08/12/17 18:59 06:59 18:59 Intake Total 2009 1375 Output Total 365 635 Balance 1645 740 Weight 99.79 kg Intake: IV 1850 Intake, IV Titration 1375 Amount D5-0.45% NaCl with KCl 1375 20Meq/l 1,000 ml @ 125 mls/hr IV .Q8H [facility] Rx#: [id number] Oral 160 Output: Drainage 10 35 Abdomen 10 35 Urine 330 600 Uretheral (Nesbitt) 600 Estimated Blood Loss 25 Other: Voiding Method Indwelling Catheter Indwelling Catheter - Exam gen: alert and oriented x3 lungs: no crackles, no wheezes heart s1s2 abd: soft and depressible, diminished bowel sounds - Labs CBC & Chem 7: 08/12/17 07:15 08/12/17 07:15 Labs: Abnormal Lab Results - Last 24 Hours (Table) 08/12/17 08/12/17 Range/Units 07:15 07:15 Hgb 11.1 L (11.4-16.0) gm/dL MCHC 29.9 L (31.0-37.0) g/dL Sodium 134 L (137-145) mmol/L Glucose 104 H (74-99) mg/dL Assessment and Plan (1) Hypertension Narrative/Plan: controlled Current Visit: Yes Status: Acute Code(s): I10 - ESSENTIAL (PRIMARY) HYPERTENSION SNOMED Code(s): 44517784 (2) Incisional hernia Narrative/Plan: s/p repair per surgery Current Visit: Yes Status: Acute Code(s): K43.2 - INCISIONAL HERNIA WITHOUT OBSTRUCTION OR GANGRENE SNOMED Code(s): 466191876 (3) Morbid obesity Current Visit: No Status: Acute Code(s): E66.01 - MORBID (SEVERE) OBESITY DUE TO EXCESS CALORIES SNOMED Code(s): 003941741
[2017-08-12] MEDS: HYDROcodone/APAP 5-325MG 1 EACH TAB PO PRN ×2 (12:14→21:07)
--- NOTE | 2017-08-12 12:34 | P.PN ---
<Ruth Stone M - Last Filed: 08/12/17 12:25> Subjective Progress Note Date: 08/12/17 47-year-old female seen and examined at bedside. Patient states pain medication effective for pain control. Patient reportedly developed an episode of itching with facial flushing epidural per recommendations of anesthesia was discontinued. no nausea no vomiting. Indwelling Nesbitt catheter in place no stool passing gas VELMA drain left lower quadrant serosanguineous drainage noted Postop 11 of August incisional hernia repair with mesh open removal LAP- BAND and components Objective - Vital Signs Vital signs: Vital Signs Temp 97.9 F 08/12/17 07:00 Pulse 58 L 08/12/17 07:00 Resp 18 08/12/17 07:00 BP 124/72 08/12/17 07:00 Pulse Ox 94 L 08/12/17 07:00 Intake & Output 08/11/17 08/12/17 08/12/17 18:59 06:59 18:59 Intake Total 2009 1375 Output Total 365 635 Balance 1645 740 Weight 99.79 kg Intake: IV 1850 Intake, IV Titration 1375 Amount D5-0.45% NaCl with KCl 1375 20Meq/l 1,000 ml @ 125 mls/hr IV .Q8H [facility] Rx#: [id number] Oral 160 Output: Drainage 10 35 Abdomen 10 35 Urine 330 600 Uretheral (Nesbitt) 600 Estimated Blood Loss 25 Other: Voiding Method Indwelling Catheter Indwelling Catheter - Exam Physical exam 47-year-old female resting in bed states the itching has resolved face flushed Lungs adequate air movement bilaterally no shortness of breath no wheezing sats are 94% on room air Heart S1-S2 audible regular heart rate in the 50s Abdomen VELMA drain left lower quadrant with serosanguineous drainage surgical dressings dry soft surgical tenderness appropriate nondistended with hypoactive bowel tones indwelling Nesbitt catheter in place Extremities no edema noted - Labs CBC & Chem 7: 08/12/17 07:15 08/12/17 07:15 Labs: Abnormal Lab Results - Last 24 Hours (Table) 08/12/17 08/12/17 Range/Units 07:15 07:15 Hgb 11.1 L (11.4-16.0) gm/dL MCHC 29.9 L (31.0-37.0) g/dL Sodium 134 L (137-145) mmol/L Glucose 104 H (74-99) mg/dL Assessment and Plan Assessment: Impression Postop 11 of August incisional hernia repair with mesh, open removal LAP- BAND and components due to an intolerance and a large incisional hernia Morbid Obesity BMI 35 Hypertension essential Plan Continue postop surgical care Pain control DVT and GI prophylaxis Home meds as appropriate Further surgical recommendations pending will follow The above impression and plan of care have been discussed and directed by signing physician. Ruth Stone nurse practitioner acting as scribe for signing physician. <Van Moyer - Last Filed: 08/12/17 13:08> Objective - Vital Signs Vital signs: Vital Signs Temp 97.9 F 08/12/17 07:00 Pulse 58 L 08/12/17 07:00 Resp 18 08/12/17 07:00 BP 124/72 08/12/17 07:00 Pulse Ox 94 L 08/12/17 07:00 Intake & Output 08/11/17 08/12/17 08/12/17 18:59 06:59 18:59 Intake Total 2009 1375 Output Total 365 635 Balance 1645 740 Weight 99.79 kg Intake: IV 1850 Intake, IV Titration 1375 Amount D5-0.45% NaCl with KCl 1375 20Meq/l 1,000 ml @ 125 mls/hr IV .Q8H [facility] Rx#: [id number] Oral 160 Output: Drainage 10 35 Abdomen 10 35 Urine 330 600 Uretheral (Nesbitt) 600 Estimated Blood Loss 25 Other: Voiding Method Indwelling Catheter Indwelling Catheter - Labs CBC & Chem 7: 08/12/17 07:15 08/12/17 07:15 Labs: Abnormal Lab Results - Last 24 Hours (Table) 08/12/17 08/12/17 Range/Units 07:15 07:15 Hgb 11.1 L (11.4-16.0) gm/dL MCHC 29.9 L (31.0-37.0) g/dL Sodium 134 L (137-145) mmol/L Glucose 104 H (74-99) mg/dL Assessment and Plan (1) Incisional hernia Narrative/Plan: Patient had her epidural catheter removed yesterday because of itching. Unfortunately as a result of that she is having slightly more pain than anticipated. We'll remove Nesbitt catheter today. Continue advancing diet. Crease activity. Current Visit: Yes Status: Acute Code(s): K43.2 - INCISIONAL HERNIA WITHOUT OBSTRUCTION OR GANGRENE SNOMED Code(s): 943796819
[2017-08-12] MEDS ORDERED: MORPHINE SULFATE 4 MG/ML SYRINGE IVP PRN (12:35)
[2017-08-12] MEDS: METOPROLOL SUCCINATE (ER) 50 MG TAB.ER.24H PO SCH (21:08)
[2017-08-13] MEDS: HEPARIN SODIUM,PORCINE 5,000 UNIT/ML 1 ML VIAL SQ SCH ×3 (00:19→16:15)
[2017-08-13] MEDS: KETOROLAC 30 MG/ML 1 ML VIAL IVP SCH ×3 (02:38→14:12)
[2017-08-13] MEDS: HYDROcodone/APAP 5-325MG 1 EACH TAB PO PRN ×4 (02:38→23:58)
[2017-08-13] MEDS: D5-0.45% NACL WITH KCL 20MEQ/L 1,000 ML IV SCH ×3 (04:24→16:14)
[2017-08-13] MEDS: LACTATED RINGERS 1,000 ML IV SCH (04:25)
[2017-08-13] MEDS: DOCUSATE 100 MG CAP PO SCH ×2 (07:10→20:43)
[2017-08-13] MEDS: FAMOTIDINE 20 MG TAB PO SCH ×2 (07:11→20:43)
[2017-08-13 07:30] LABS: Basophils # (A) 0.1 k/uL (0-0.2); Basophils % (A) 1 %; Eosinophils # (A) 0.2 k/uL (0-0.7); Eosinophils % (A) 3 %; HCT 42.3 % (34.0-46.0); HGB 12.5 gm/dL (11.4-16.0); Hypochromasia Marked; Lymphocytes # (A) 1.5 k/uL (1.0-4.8); Lymphocytes % (A) 24 %; MCH 28.8 pg (25.0-35.0); MCHC 29.5 g/dL (31.0-37.0); MCV 97.8 fL (80.0-100.0); Mean Platelet Volume 8.4; Monocytes # (A) 0.4 k/uL (0-1.0); Monocytes % (A) 7 %; Neutrophils % (A) 63 %; Platelet Count 201 k/uL (150-450); RBC 4.32 m/uL (3.80-5.40); RDW 15.3 % (11.5-15.5); WBC 6.3 k/uL (3.8-10.6)
[2017-08-13 07:40] LABS: ALT 86 U/L (9-52); AST 85 U/L (14-36); Albumin 3.7 g/dL (3.5-5.0); Alkaline Phosphatase 58 U/L (38-126); Blood Urea Nitrogen 9 mg/dL (7-17); Calcium 9.9 mg/dL (8.4-10.2); Carbon Dioxide 28 mmol/L (22-30); Chloride 104 mmol/L (98-107); Glucose 87 mg/dL (74-99); Total Bilirubin 0.9 mg/dL (0.2-1.3); Total Protein 6.3 g/dL (6.3-8.2)
[2017-08-13 07:52] LABS: Anion Gap 9 mmol/L; Potassium 4.2 mmol/L (3.5-5.1); Sodium 141 mmol/L (137-145)
[2017-08-13] MEDS ORDERED: hydrALAZINE HCL 20 MG/ML 1 ML VIAL IVP PRN (10:21)
--- NOTE | 2017-08-13 10:24 | P.PN ---
Subjective Progress Note Date: 08/13/17 Principal diagnosis: hernia repair Patient is a 47-year-old female history of hypertension, PCO S, and urinary retention who underwent elective incisional hernia repair on 08/11 without any immediate complications. We are following her for her history of hypertension and obesity. Patient seen and examined at bedside. She reports she is passing gas but has still not had a bowel movement. She reports feeling more full today than yesterday. She had an episode last night where she woke up and was wheezing. She was seen by our partner Dr. Villegas reports she was clear to auscultation. She reports wheezing. We discussed that this is an upper airway wheezing of likely related to some inflammation secondary to intubation due to surgery. I' ve ensured her that there is no wheezing or crackles at her bases. She has been using her incentive spirometer and did walk twice last night and once this morning. She plans to walk twice again today. She has been eating. She is just overall not feeling well. Objective - Vital Signs Vital signs: Vital Signs Temp 98.3 F 08/13/17 07:00 Pulse 65 08/13/17 09:20 Resp 17 08/13/17 09:20 BP 146/92 08/13/17 08:46 Pulse Ox 94 L 08/13/17 07:00 Intake & Output 08/12/17 08/13/17 08/13/17 18:59 06:59 18:59 Intake Total 1830 590 Output Total 2830 30 Balance -1000 560 Intake: Intake, IV Titration 750 Amount D5-0.45% NaCl with KCl 750 20Meq/l 1,000 ml @ 125 mls/hr IV .Q8H [facility] Rx#: [id number] Oral 1080 590 Output: Drainage 30 30 Abdomen 30 30 Urine 2800 Uretheral (Nesbitt) 2200 Other: Voiding Method Indwelling Catheter Toilet Toilet # Voids 1 - Exam General: non toxic, mild distress, appears at stated age, obese Derm: warm, dry Head: atraumatic, normocephalic, symmetric Eyes: EOMI, no lid lag, anicteric sclera Mouth: no lip lesion, mucus membranes moist Cardiovascular: S1S2 reg, no murmur, positive posterior tibial pulse bilateral, Lungs: CTA bilateral, no rhonchi, no rales , no accessory muscle use Abdominal: Hypoactive bowel sounds soft, nontender to palpation diffusely, no guarding, no appreciable organomegaly, VELMA drain with serosanguineous fluid Ext: no gross muscle atrophy, no edema, no contractures Neuro: CN II-XI grossly intact, no focal neuro deficits Psych: Alert, oriented, appropriate affect - Labs CBC & Chem 7: 08/13/17 07:05 08/13/17 07:05 Labs: Abnormal Lab Results - Last 24 Hours (Table) 08/13/17 08/13/17 Range/Units 07:05 07:05 MCHC 29.5 L (31.0-37.0) g/dL AST 85 H (14-36) U/L ALT 86 H (9-52) U/L Assessment and Plan Assessment: Incisional hernia repair on 08/11 -Postoperative management as per primary team - Pain control -already on stool softeners Hypertension, likely accelerated this morning due to poor pain control -Continue with metoprolol -Add hydralazine for use if blood pressure remains elevated Morbid obesity with BMI 35.5 -Structured outpatient weight loss DVT prophylaxis: Heparin Discussed with: Patient, nursing A total of 35 minutes was spent on the care of this complex patient more than 50 % of the time was spent in counseling and care coordination.
--- NOTE | 2017-08-13 12:01 | P.PN ---
Subjective Progress Note Date: 08/13/17 Principal diagnosis: Incisional hernia repair Patient still having issues with pain control. She says it slightly better than yesterday. She says she is only taking [place] and Toradol and not morphine for the pain. Mostly hurts when she moves about in bed and tries to sit up. Objective - Vital Signs Vital signs: Vital Signs Temp 98.3 F 08/13/17 07:00 Pulse 65 08/13/17 09:20 Resp 17 08/13/17 09:20 BP 146/92 08/13/17 08:46 Pulse Ox 94 L 08/13/17 07:00 Intake & Output 08/12/17 08/13/17 08/13/17 18:59 06:59 18:59 Intake Total 1830 590 240 Output Total 2830 30 Balance -1000 560 240 Intake: Intake, IV Titration 750 Amount D5-0.45% NaCl with KCl 750 20Meq/l 1,000 ml @ 125 mls/hr IV .Q8H [facility] Rx#: [id number] Oral 1080 590 240 Output: Drainage 30 30 Abdomen 30 30 Urine 2800 Uretheral (Nesbitt) 2200 Other: Voiding Method Indwelling Catheter Toilet Toilet # Voids 1 - Exam Abdomen: Soft, nondistended, mild incisional tenderness, dressing intact - Labs CBC & Chem 7: 08/13/17 07:05 08/13/17 07:05 Labs: Abnormal Lab Results - Last 24 Hours (Table) 08/13/17 08/13/17 Range/Units 07:05 07:05 MCHC 29.5 L (31.0-37.0) g/dL AST 85 H (14-36) U/L ALT 86 H (9-52) U/L Assessment and Plan (1) Incisional hernia Narrative/Plan: Continue diet as tolerated. Increase activity. Continue analgesics. Possible discharge tomorrow. Current Visit: Yes Status: Acute Code(s): K43.2 - INCISIONAL HERNIA WITHOUT OBSTRUCTION OR GANGRENE SNOMED Code(s): 644460392
[2017-08-13] MEDS: MORPHINE SULFATE 4 MG/ML SYRINGE IVP PRN ×3 (12:07→20:43)
[2017-08-13 16:06] VITALS: RESP 16
[2017-08-13] MEDS: METOPROLOL SUCCINATE (ER) 50 MG TAB.ER.24H PO SCH (20:43)
[2017-08-14] MEDS: HEPARIN SODIUM,PORCINE 5,000 UNIT/ML 1 ML VIAL SQ SCH ×4 (00:05→23:45)
[2017-08-14] MEDS: MORPHINE SULFATE 4 MG/ML SYRINGE IVP PRN ×2 (01:22→07:44)
[2017-08-14] MEDS: D5-0.45% NACL WITH KCL 20MEQ/L 1,000 ML IV SCH (02:34)
[2017-08-14] MEDS: LACTATED RINGERS 1,000 ML IV SCH (04:36)
[2017-08-14] MEDS: HYDROcodone/APAP 5-325MG 1 EACH TAB PO PRN ×5 (04:37→23:47)
[2017-08-14] MEDS: METOCLOPRAMIDE 5 MG/ML 2 ML VIAL IVP PRN ×2 (07:44→19:26)
[2017-08-14] MEDS: DOCUSATE 100 MG CAP PO SCH ×2 (07:50→21:27)
[2017-08-14] MEDS: FAMOTIDINE 20 MG TAB PO SCH ×2 (07:50→21:27)
--- NOTE | 2017-08-14 13:41 | P.PN ---
<Ruth Stone - Last Filed: 08/14/17 13:35> Subjective Progress Note Date: 08/14/17 47-year-old female seen and examined at bedside. Patient reports continues to have abdominal cramping. States passing gas no bowel movement. Patient reports having a sensation of nausea this morning with no emesis. States has been up ambulating in the rock yesterday. States pain medication has been effective for pain control Postop 11 of August incisional hernia repair with mesh open removal LAP- BAND and components Objective - Vital Signs Vital signs: Vital Signs Temp 98.5 F 08/14/17 07:00 Pulse 56 L 08/14/17 07:00 Resp 16 08/14/17 07:00 BP 148/96 08/14/17 07:00 Pulse Ox 96 08/14/17 07:00 Intake & Output 08/13/17 08/14/17 08/14/17 18:59 06:59 18:59 Intake Total 1200 400 Output Total 30 20 Balance 1170 380 Intake: Oral 1200 400 Output: Drainage 30 20 Abdomen 30 20 Other: Voiding Method Toilet Toilet Toilet # Voids 3 1 - Exam exam Abdomen soft nondistended surgical tenderness appropriate surgical dressings dry VELMA drain left lower quadrant draining serosanguineous drainage states passing gas no stool tolerating a diet no nausea no vomiting bowel tones present - Labs CBC & Chem 7: 08/13/17 07:05 08/13/17 07:05 Assessment and Plan Assessment: Impression Postop 11 of August incisional hernia repair with mesh, open removal LAP- BAND and components due to an intolerance and a large incisional hernia Morbid Obesity BMI 35 Hypertension essential Plan Continue postop surgical care Pain control DVT and GI prophylaxis Home meds as appropriate Further surgical recommendations pending will follow Possible discharge tomorrow The above impression and plan of care have been discussed and directed by signing physician. Ruth Stone nurse practitioner acting as scribe for signing physician. <Van Moyer - Last Filed: 08/14/17 17:47> Objective - Vital Signs Vital signs: Vital Signs Temp 99.2 F 08/14/17 14:58 Pulse 81 08/14/17 14:58 Resp 16 08/14/17 14:58 BP 125/81 08/14/17 14:58 Pulse Ox 94 L 08/14/17 14:58 Intake & Output 08/13/17 08/14/17 08/14/17 18:59 06:59 18:59 Intake Total 1200 400 Output Total 30 20 10 Balance 1170 380 -10 Intake: Oral 1200 400 Output: Drainage 30 20 10 Abdomen 30 20 10 Other: Voiding Method Toilet Toilet Toilet # Voids 3 1 - Labs CBC & Chem 7: 08/13/17 07:05 08/13/17 07:05 Assessment and Plan Assessment: Patient doing well today. Pain seems to be better. She is tolerating her diet. Appetite remains poor. Positive flatus, no bowel movement. Low-grade fever of 99.2. Continue increasing activity. Plan discharge tomorrow. (1) Incisional hernia Current Visit: Yes Status: Acute Code(s): K43.2 - INCISIONAL HERNIA WITHOUT OBSTRUCTION OR GANGRENE SNOMED Code(s): 141215272
[2017-08-14] MEDS ORDERED: POLYETHYLENE GLYCOL 3350 17 GM POWD.PACK PO STA (13:52)
--- NOTE | 2017-08-14 13:56 | P.PN ---
Subjective Progress Note Date: 08/14/17 (delayed charting patient seen at aprox 1000) Principal diagnosis: hernia repair Patient is a 47-year-old female history of hypertension, PCOS, and urinary retention who underwent elective incisional hernia repair on 08/11 without any immediate complications. We are following her for her history of hypertension and obesity. Patient seen and examined at bedside. She is still not feeling well due to pain and overall discomfort. She is passing gas but has not had a bowel movement. She has not had any shortness of breath or chest pain. She denies any nausea. She has been tolerating her diet. Objective - Vital Signs Vital signs: Vital Signs Temp 98.5 F 08/14/17 07:00 Pulse 56 L 08/14/17 07:00 Resp 16 08/14/17 07:00 BP 148/96 08/14/17 07:00 Pulse Ox 96 08/14/17 07:00 Intake & Output 08/13/17 08/14/17 08/14/17 18:59 06:59 18:59 Intake Total 1200 400 Output Total 30 20 Balance 1170 380 Intake: Oral 1200 400 Output: Drainage 30 20 Abdomen 30 20 Other: Voiding Method Toilet Toilet Toilet # Voids 3 1 - Exam General: non toxic, mild distress, appears at stated age, obese Derm: warm, dry Head: atraumatic, normocephalic, symmetric Eyes: EOMI, no lid lag, anicteric sclera Mouth: no lip lesion, mucus membranes moist Cardiovascular: S1S2 reg, no murmur, positive posterior tibial pulse bilateral, Lungs: decreased bs b/l bases, no rhonchi, no rales , no accessory muscle use Abdominal: Hypoactive bowel sounds soft, nontender to palpation diffusely, no guarding, no appreciable organomegaly, VELMA drain with serosanguineous fluid Ext: no gross muscle atrophy, no edema, no contractures Neuro: CN II-XI grossly intact, no focal neuro deficits Psych: Alert, oriented, appropriate affect - Labs CBC & Chem 7: 08/13/17 07:05 08/13/17 07:05 Assessment and Plan Assessment: Incisional hernia repair on 08/11 -Postoperative management as per primary team - Pain control -already on stool softeners Constipation - on Colace and Reglan - Miralax X 1 Hypertension, -Continue with metoprolol - hydralazine for use if blood pressure remains elevated Morbid obesity with BMI 35.5 -Structured outpatient weight loss DVT prophylaxis: Heparin Discussed with: Patient, nursing A total of 25 minutes was spent on the care of this complex patient more than 50 % of the time was spent in counseling and care coordination.
[2017-08-14] MEDS: METOPROLOL SUCCINATE (ER) 50 MG TAB.ER.24H PO SCH (21:27)
[2017-08-14 22:12] VITALS: PULSE 66
[2017-08-15] MEDS: HYDROcodone/APAP 5-325MG 1 EACH TAB PO PRN ×3 (03:38→14:27)
[2017-08-15] MEDS: LACTATED RINGERS 1,000 ML IV SCH (06:56)
[2017-08-15 08:01] VITALS: BP 178/98; TEMP 98.4
[2017-08-15] MEDS: HEPARIN SODIUM,PORCINE 5,000 UNIT/ML 1 ML VIAL SQ SCH (08:23)
[2017-08-15] MEDS: FAMOTIDINE 20 MG TAB PO SCH (08:23)
[2017-08-15] MEDS: DOCUSATE 100 MG CAP PO SCH (08:23)
[2017-08-15] MEDS: METOCLOPRAMIDE 5 MG/ML 2 ML VIAL IVP PRN (08:27)
[2017-08-15] MEDS ORDERED: ONDANSETRON ODT 4 MG TAB PO PRN (09:29)
[2017-08-15] MEDS ORDERED: POLYETHYLENE GLYCOL 3350 17 GM POWD.PACK PO STA (09:33)
--- NOTE | 2017-08-15 09:36 | P.PN ---
Subjective Progress Note Date: 08/15/17 Principal diagnosis: hernia repair Patient is a 47-year-old female history of hypertension, PCOS, and urinary retention who underwent elective incisional hernia repair on 08/11 without any immediate complications. We are following her for her history of hypertension and obesity. Patient seen and examined at bedside. Feeling nauseous this morning, just took Tynan. Still no BM. No chest pain or shortness of breath. Objective - Vital Signs Vital signs: Vital Signs Temp 98.4 F 08/15/17 07:00 Pulse 66 08/15/17 07:00 Resp 16 08/15/17 07:00 BP 178/98 08/15/17 07:00 Pulse Ox 96 08/15/17 07:00 Intake & Output 08/14/17 08/15/17 08/15/17 18:59 06:59 18:59 Intake Total 540 Output Total 10 615 Balance - Weight 99.79 kg Intake: Oral 540 Output: Drainage 10 15 Abdomen 10 15 Urine 600 Other: Voiding Method Toilet Toilet # Voids 1 - Exam General: non toxic, no distress, appears at stated age, obese Derm: warm, dry Head: atraumatic, normocephalic, symmetric Eyes: EOMI, no lid lag, anicteric sclera Mouth: no lip lesion, mucus membranes moist Cardiovascular: S1S2 reg, no murmur, positive posterior tibial pulse bilateral, Lungs: decreased bs b/l bases, no rhonchi, no rales , no accessory muscle use Abdominal: Hypoactive bowel sounds soft, nontender to palpation diffusely, no guarding, no appreciable organomegaly, VELMA drain with serosanguineous fluid Ext: no gross muscle atrophy, no edema, no contractures Neuro: CN II-XI grossly intact, no focal neuro deficits Psych: Alert, oriented, appropriate affect - Labs CBC & Chem 7: 08/13/17 07:05 08/13/17 07:05 Assessment and Plan Assessment: Incisional hernia repair on 08/11 -Postoperative management as per primary team - Pain control -already on stool softeners Nausea - no IV so oral zofran - added RX to discharge for oral zofran as pain meds are making her nauseous Constipation - on Colace and Reglan - Miralax X 1 Hypertension, -Continue with metoprolol - hydralazine for use if blood pressure remains elevated - intermittenly elevated BP likely due to pain/nausea/anxiety. No significant enough to warrant a change in home medications. Should f/u with paige in 1 week for recheck. Patient aware and added to discharge summary. Morbid obesity with BMI 35.5 -Structured outpatient weight loss DVT prophylaxis: Heparin Discussed with: Patient, nursing A total of 25 minutes was spent on the care of this complex patient more than 50 % of the time was spent in counseling and care coordination.
[2017-08-15] MEDS ORDERED: BISACODYL 5 MG TABLET.DR PO STA (12:15)
--- NOTE | 2017-08-15 12:23 | P.DS ---
<Ruth Stone - Last Filed: 08/15/17 12:13> Providers Date of admission: 08/11/17 10:38 Expected date of discharge: 08/15/17 Attending physician: Van Moyer Consults: 08/11/17 10:58 Consult Physician Routine Consulting Provider: Christian Fry Consult Reason/Comments: Medical management Do you want consulting provider notified?: Already Contacted Primary care physician: Suzan Philippe MD Hospital Course: 47-year-old female presented for elective basis to undergo repair of a large incisional hernia. Patient continued to have worsening reflux symptoms as well as abdominal pain on August 11 patient underwent incisional hernia repair with mesh open removal of lap band and components due to band intolerance. On the day of discharge patient was up ambulatory on the unit pain medication optimized for pain control and nausea vomiting passing gas no BM shortness of breath no chest painI impression discharge diagnosis Postop 11 of August incisional hernia repair with mesh, open removal LAP- BAND and components due to an intolerance and a large incisional hernia Morbid Obesity BMI 35 Hypertension essential Constipation The above impression and plan of care have been discussed and directed by signing physician. Ruth Stone nurse practitioner acting as scribe for signing physician. Plan - Discharge Summary New Discharge Prescriptions: New Hydrocodone/Acetaminophen [[place] 5-325] 1 - 2 each PO Q4HR PRN #30 tab PRN Reason: pain Ondansetron [Zofran] 4 mg PO Q6H PRN #30 tab PRN Reason: Nausea And Vomiting Acetaminophen Tab [Tylenol] 650 mg PO Q6HR PRN tab PRN Reason: Mild Pain Or Fever >= 100.5 Docusate [Colace] 100 mg PO BID #60 cap Continue Metoprolol Succinate (ER) [Toprol XL] 50 mg PO HS HYDROcodone/APAP 5-325MG [[place] 5-325] 1 tab PO Q6HR PRN PRN Reason: Pain Discharge Medication List Metoprolol Succinate (ER) [Toprol XL] 50 mg PO HS 09/05/15 [History] HYDROcodone/APAP 5-325MG [[place] 5-325] 1 tab PO Q6HR PRN 08/06/17 [History] Hydrocodone/Acetaminophen [[place] 5-325] 1 - 2 each PO Q4HR PRN #30 tab 08/11/17 [Rx] Acetaminophen Tab [Tylenol] 650 mg PO Q6HR PRN tab 08/15/17 [Rx] Docusate [Colace] 100 mg PO BID #60 cap 08/15/17 [Rx] Ondansetron [Zofran] 4 mg PO Q6H PRN #30 tab 08/15/17 [Rx] Follow up Appointment(s)/Referral(s): Van Moyer MD [Medical Doctor] - 1 Week Suzan Philippe MD [Primary Care Provider] - 1 Week (Patient to call Dr. Philippe's office Friday to schedule follow up appointment. The office is closed at time of discharge. ) Patient Instructions/Handouts: Hydrocodone/Acetaminophen (By mouth), Laxative, Stool Softeners (By mouth), Ondansetron (By mouth), Ventral Hernia Repair (DC) Activity/Diet/Wound Care/Special Instructions: No tub bath for six weeks. Shower daily. No lifting over 4 pounds for the next 6 weeks. Monitor VELMA drain and record. May use ice packs to surgical site. No driving while taking narcotic for pain. Use [id number] stool softener to avoid constipation May return to physical therapy for shoulder after seen in a follow-up visit with Dr. Fountain Discharge Disposition: HOME SELF-CARE <Van Moyer - Last Filed: 08/15/17 15:14> - Discharge Diagnosis(es) (1) Incisional hernia As above. Patient doing quite well at this time. Stable for discharge. Follow -up in the office 1 week. Will keep VELMA drain in place. Current Visit: Yes Status: Acute
== END 2017-08-15 15:46 | disposition home or self-care (01) | DRG 328 ==
LOC: OR 06:29 → 5MS5E 10:38
PROVIDERS: ADMIT Surgery; ATTEND Surgery
PROC: 0WUF0JZ Supplement Abdominal Wall with Synthetic Substitute, Open Approach (ICD-10-PCS; principal; 2017-08-11 07:45)
PROC: 0DP60CZ Removal of Extraluminal Device from Stomach, Open Approach (ICD-10-PCS; principal; 2017-08-11 07:45)
DX: K43.2 Incisional hernia without obstruction or gangrene (principal); E66.01 Morbid (severe) obesity due to excess calories; E28.2 Polycystic ovarian syndrome; F41.9 Anxiety disorder, unspecified; I10 Essential (primary) hypertension; K59.00 Constipation, unspecified; Z90.710 Acquired absence of both cervix and uterus; Z79.891 Long term (current) use of opiate analgesic; Z79.899 Other long term (current) drug therapy; Z68.35 Body mass index [BMI] 35.0-35.9, adult; L27.0 Generalized skin eruption due to drugs and medicaments taken internally; L50.0 Allergic urticaria; T39.8X5A Adverse effect of other nonopioid analgesics and antipyretics, not elsewhere classified, initial encounter
CPT/HCPCS: 80048; 80053; 81025; 85025; 88302

== ENCOUNTER 2017-09-30 12:03 | Emergency (ER) | payer OTHER ==
[2017-09-30] MEDS ORDERED: SODIUM CHLORIDE 0.9% 1,000 ML IV STA (12:28)
[2017-09-30] MEDS ORDERED: ONDANSETRON ODT 8 MG TAB.RAPDIS PO STA (12:28)
[2017-09-30] MEDS ORDERED: RX INFO: IV CONTRAST WAS GIVEN 1 EACH MISC MISCELLANE PRN (12:28)
[2017-09-30] MEDS ORDERED: MORPHINE SULFATE 4MG/4ML SYRG IVP STA (12:29)
--- NOTE | 2017-09-30 12:31 | ED ---
General Adult HPI - General Chief complaint: Abdominal Pain Stated complaint: Abdominal pain Time Seen by Provider: 09/30/17 12:18 Source: patient, RN notes reviewed Mode of arrival: ambulatory Limitations: no limitations - History of Present Illness Initial comments: Patient 47-year-old female presented to the emergency room today with a chief complaint of abdominal pain to the right side of the abdomen starting 2 days ago. Patient describes it as sharp pain currently rates it at 10/10. Does admit that she had surgery approximately 6 weeks ago for hernia repair. She states she called her surgeon's office who was out of the office and advised come here to the emergency room. She has admit that she's had some nausea with 1 episode vomiting. She denies any frequency associated symptoms. Patient denies any recent fever, chills, shortness of breath, chest pain, back pain, numbness or tingling, dysuria or hematuria, constipation or diarrhea, headaches or visual changes, or any other complaints. - Related Data Home Medications Medication Instructions Recorded Confirmed Metoprolol Succinate (ER) [Toprol 50 mg PO HS 09/05/15 09/30/17 XL] HYDROcodone/APAP 5-325MG [[place] 1 tab PO Q6HR PRN 08/06/17 09/30/17 5-325] Previous Rx's Medication Instructions Recorded Ondansetron [Zofran] 4 mg PO Q6H PRN #30 tab 08/15/17 Allergies Allergy/AdvReac Type Severity Reaction Status Date / Time codeine AdvReac Nausea & Verified 09/30/17 12:50 Vomiting and itching EPIDURAL Allergy Rash/Hives Uncoded 09/30/17 12:50 Review of Systems ROS Statement: Those systems with pertinent positive or pertinent negative responses have been documented in the HPI. ROS Other: All systems not noted in ROS Statement are negative. Past Medical History Past Medical History: Hypertension Additional Past Medical History / Comment(s): PCOS, urinary incontinence History of Any Multi-Drug Resistant Organisms: None Reported Past Surgical History: Bariatric Surgery, Cholecystectomy, Hernia Repair Additional Past Surgical History / Comment(s): left rotator cuff, bicep tear right arm, lap band, hysterectomy January 2017 Past Anesthesia/Blood Transfusion Reactions: Motion Sickness, Postoperative Nausea & Vomiting (PONV) Additional Past Anesthesia/Blood Transfusion Reaction / Comment(s): mother- ileus post op Past Psychological History: No Psychological Hx Reported Smoking Status: Never smoker Past Alcohol Use History: Occasional Past Drug Use History: None Reported - Past Family History Mother Family Medical History: Cancer General Exam - General Exam Comments Initial Comments: General: The patient is awake and alert, in no distress, and does not appear acutely ill. Eye: Pupils are equal, round and reactive to light, extra-ocular movements are intact. No nystagmus. There is normal conjunctiva bilaterally. Ears, nose, mouth and throat: There are moist mucous membranes and no oral lesions. Neck: The neck is supple, there is no tenderness or JVD. Cardiovascular: There is a regular rate and rhythm. No murmur, rub or gallop is appreciated. Respiratory: Lungs are clear to auscultation, respirations are non-labored, breath sounds are equal. No wheezes, stridor, rales, or rhonchi. Gastrointestinal: Abdomen soft on palpation. Patient does have tenderness right side of the abdomen of her quadrant. No rebound tenderness. No guarding. No CVA tenderness. Musculoskeletal: Normal ROM, no tenderness. Strength 5/5. Sensation intact. Pulses equal bilaterally 2+. Neurological: A&O x 3. CN II-XII intact, There are no obvious motor or sensory deficits. Coordination appears grossly intact. Speech is normal. Skin: Skin is warm and dry and no rashes or lesions are noted. Psychiatric: Cooperative, appropriate mood & affect, normal judgment. Limitations: no limitations Course Vital Signs 09/30/17 09/30/17 12:09 13:05 Temperature 97.5 F L Pulse Rate 74 61 Respiratory 18 18 Rate Blood Pressure 145/100 178/81 O2 Sat by Pulse 97 95 Oximetry Medical Decision Making - Medical Decision Making Patient's CT shows evidence for fatty liver. Liver enzymes mildly elevated. Patient's had a cholecystectomy. Case discussed in detail with attending physician Dr. Catherine. Patient doing well feeling better will be discharged from to follow-up with her surgeon. Advised return if any symptoms increase or worsen. - Lab Data Result diagrams: 09/30/17 12:30 09/30/17 12:30 Lab Results 09/30/17 09/30/17 09/30/17 Range/Units 12:30 12:30 12:30 WBC 5.1 (3.8-10.6) k/uL RBC 4.75 (3.80-5.40) m/uL Hgb 14.1 (11.4-16.0) gm/dL Hct 43.5 (34.0-46.0) % MCV 91.4 D (80.0-100.0) fL MCH 29.8 (25.0-35.0) pg MCHC 32.5 (31.0-37.0) g/dL RDW 14.4 (11.5-15.5) % Plt Count 222 (150-450) k/uL Neutrophils % 62 % Lymphocytes % 24 % Monocytes % 7 % Eosinophils % 5 % Basophils % 1 % Neutrophils # 3.2 (1.3-7.7) k/uL Lymphocytes # 1.2 (1.0-4.8) k/uL Monocytes # 0.4 (0-1.0) k/uL Eosinophils # 0.2 (0-0.7) k/uL Basophils # 0.0 (0-0.2) k/uL Sodium 143 (137-145) mmol/L Potassium 4.3 (3.5-5.1) mmol/L Chloride 103 (98-107) mmol/L Carbon Dioxide 24 (22-30) mmol/L Anion Gap 16 mmol/L BUN 11 (7-17) mg/dL Creatinine 0.70 (0.52-1.04) mg/dL Est GFR (CKD-EPI)AfAm >90 (>60 ml/min/1.73 sqM) Est GFR (CKD-EPI)NonAf >90 (>60 ml/min/1.73 sqM) Glucose 103 H (74-99) mg/dL Plasma Lactic Acid [place] 1.2 (0.7-2.0) mmol/L Calcium 10.9 H (8.4-10.2) mg/dL Total Bilirubin 1.4 H (0.2-1.3) mg/dL AST 135 H (14-36) U/L ALT 111 H (9-52) U/L Alkaline Phosphatase 70 (38-126) U/L Total Protein 7.4 (6.3-8.2) g/dL Albumin 4.4 (3.5-5.0) g/dL Amylase 50 (30-110) U/L Lipase 81 (23-300) U/L Urine Color Urine Appearance (Clear) Urine pH (5.0-8.0) Ur Specific [place] (1.001-1.035) Urine Protein (Negative) Urine Glucose (UA) (Negative) Urine Ketones (Negative) Urine Blood (Negative) Urine Nitrite (Negative) Urine Bilirubin (Negative) Urine Urobilinogen (<2.0) mg/dL Ur Leukocyte Esterase (Negative) Urine RBC (0-5) /hpf Urine WBC (0-5) /hpf Ur Squamous Epith Cells (0-4) /hpf Urine Bacteria (None) /hpf Hyaline Casts (0-2) /lpf Urine Mucus (None) /hpf 09/30/17 Range/Units 12:30 WBC (3.8-10.6) k/uL RBC (3.80-5.40) m/uL Hgb (11.4-16.0) gm/dL Hct (34.0-46.0) % MCV (80.0-100.0) fL MCH (25.0-35.0) pg MCHC (31.0-37.0) g/dL RDW (11.5-15.5) % Plt Count (150-450) k/uL Neutrophils % % Lymphocytes % % Monocytes % % Eosinophils % % Basophils % % Neutrophils # (1.3-7.7) k/uL Lymphocytes # (1.0-4.8) k/uL Monocytes # (0-1.0) k/uL Eosinophils # (0-0.7) k/uL Basophils # (0-0.2) k/uL Sodium (137-145) mmol/L Potassium (3.5-5.1) mmol/L Chloride (98-107) mmol/L Carbon Dioxide (22-30) mmol/L Anion Gap mmol/L BUN (7-17) mg/dL Creatinine (0.52-1.04) mg/dL Est GFR (CKD-EPI)AfAm (>60 ml/min/1.73 sqM) Est GFR (CKD-EPI)NonAf (>60 ml/min/1.73 sqM) Glucose (74-99) mg/dL Plasma Lactic Acid [place] (0.7-2.0) mmol/L Calcium (8.4-10.2) mg/dL Total Bilirubin (0.2-1.3) mg/dL AST (14-36) U/L ALT (9-52) U/L Alkaline Phosphatase (38-126) U/L Total Protein (6.3-8.2) g/dL Albumin (3.5-5.0) g/dL Amylase (30-110) U/L Lipase (23-300) U/L Urine Color Yellow Urine Appearance Cloudy H (Clear) Urine pH 6.5 (5.0-8.0) Ur Specific [place] 1.021 (1.001-1.035) Urine Protein 1+ H (Negative) Urine Glucose (UA) Negative (Negative) Urine Ketones Trace H (Negative) Urine Blood Negative (Negative) Urine Nitrite Negative (Negative) Urine Bilirubin 1+ H (Negative) Urine Urobilinogen 4.0 (<2.0) mg/dL Ur Leukocyte Esterase Negative (Negative) Urine RBC 3 (0-5) /hpf Urine WBC 2 (0-5) /hpf Ur Squamous Epith Cells 33 H (0-4) /hpf Urine Bacteria Rare H (None) /hpf Hyaline Casts 8 H (0-2) /lpf Urine Mucus Many H (None) /hpf Disposition Clinical Impression: Abdominal pain, Elevated liver enzymes Disposition: HOME SELF-CARE Condition: Good Instructions: Abdominal Pain (ED) Additional Instructions: Please use medication as discussed. Please follow-up with surgeon/family doctor in the next 2 days of symptoms have not improved. Please return to emergency room if the symptoms increase or worsen or for any other concerns. Is patient prescribed a controlled substance at discharge?: No Referrals: Suzan Philippe MD [Primary Care Provider] - 1-2 days Van Moyer MD [Medical Doctor] - 1-2 days Time of Disposition: 14:55
[2017-09-30 13:04] LABS: Basophils % (A) 1 %; Eosinophils # (A) 0.2 k/uL (0-0.7); Eosinophils % (A) 5 %; HCT 43.5 % (34.0-46.0); HGB 14.1 gm/dL (11.4-16.0); Lymphocytes # (A) 1.2 k/uL (1.0-4.8); Lymphocytes % (A) 24 %; MCH 29.8 pg (25.0-35.0); MCHC 32.5 g/dL (31.0-37.0); Mean Platelet Volume 8.8; Monocytes # (A) 0.4 k/uL (0-1.0); Monocytes % (A) 7 %; Neutrophils # (A) 3.2 k/uL (1.3-7.7); Neutrophils % (A) 62 %; Platelet Count 222 k/uL (150-450); RBC 4.75 m/uL (3.80-5.40); RDW 14.4 % (11.5-15.5); WBC 5.1 k/uL (3.8-10.6)
[2017-09-30 13:07] LABS: MCV 91.4 fL (80.0-100.0)
[2017-09-30 13:11] LABS: Appearance,Urine Cloudy (Clear); Bacteria,Urine Rare /hpf; Bilirubin,Urine 1+ (Negative); Blood,Urine Negative (Negative); Color,Urine Yellow; Glucose,Urine (UA) Negative (Negative); Hyaline Casts,Urine 8 /lpf (0-2); Ketones,Urine Trace (Negative); Leukocyte Esterase,Urine Negative (Negative); Mucus,Urine Many /hpf; Nitrite,Urine Negative (Negative); PH, Urine 6.5 (5.0-8.0); Protein,Urine 1+ (Negative); RBC,Urine 3 /hpf (0-5); Specific Gravity,Urine 1.021 (1.001-1.035); Squamous Epithelial Cell,Urine 33 /hpf (0-4); WBC,Urine 2 /hpf (0-5)
[2017-09-30 13:15] LABS: ALT 111 U/L (9-52); AST 135 U/L (14-36); Albumin 4.4 g/dL (3.5-5.0); Alkaline Phosphatase 70 U/L (38-126); Amylase 50 U/L (30-110); Anion Gap 16 mmol/L; Blood Urea Nitrogen 11 mg/dL (7-17); Calcium 10.9 mg/dL (8.4-10.2); Carbon Dioxide 24 mmol/L (22-30); Chloride 103 mmol/L (98-107); Glucose 103 mg/dL (74-99); Lipase 81 U/L (23-300); Potassium 4.3 mmol/L (3.5-5.1); Sodium 143 mmol/L (137-145); Total Bilirubin 1.4 mg/dL (0.2-1.3); Total Protein 7.4 g/dL (6.3-8.2)
--- NOTE | 2017-09-30 14:31 | CT ---
EXAMINATION TYPE: CT abdomen pelvis w con DATE OF EXAM: 09/30/2017 COMPARISON: CT abdomen pelvis 04/17/2010, ultrasound abdomen dated 10/16/2016 HISTORY: Pain CT DLP: 2164.8 mGycm Automated exposure control for dose reduction was used. TECHNIQUE: Helical acquisition of images from the lung bases through the pelvis have been completed. CONTRAST: Performed without Oral Contrast and with IV Contrast, patient injected with 100 mL of Isovue 300. FINDINGS: LUNG BASES: No significant abnormality is appreciated. AORTA: No significant abnormality is appreciated. LIVER/GB: Liver shows low density compatible with hepatic steatosis and the liver is enlarged. Gallbl adder is absent, surgical clips are present. PANCREAS: No significant abnormality is seen. SPLEEN: No significant abnormality is seen. ADRENALS: No significant abnormality is seen. KIDNEYS: No significant abnormality is seen. REPRODUCTIVE ORGANS: Absent BOWEL: Postop change noted at the gastroesophageal junction, distal esophagus shows some wall thicke mio, mild ectasia possibly due to esophageal pouch or recurrent hiatal hernia, lap band has been rem greg. Diverticular changes associated with the sigmoid colon, there is no evident bowel obstruction. No evident appendicitis. FREE AIR: No Free Air visible. ASCITES: None visible. PELVIC ADENOPATHY: None visualized. RETROPERITONEAL ADENOPATHY: No Retroperitoneal Adenopathy visible. URINARY BLADDER: No significant abnormality is seen. OSSEOUS STRUCTURES: No significant abnormality is seen. Along the anterior abdominal wall there is increased density compatible with prior surgery. IMPRESSION: HEPATIC STEATOSIS. POSTOP CHANGES.
[2017-09-30 15:05] VITALS: BP 153/86; PULSE 53; RESP 15; TEMP 97.9
== END 2017-09-30 15:16 | disposition home or self-care (01) ==
LOC: EC 12:03
DX: R10.9 Unspecified abdominal pain (principal); K76.0 Fatty (change of) liver, not elsewhere classified; R94.5 Abnormal results of liver function studies; I10 Essential (primary) hypertension; Z88.5 Allergy status to narcotic agent; Z91.09 Other allergy status, other than to drugs and biological substances; Z79.899 Other long term (current) drug therapy; Z98.84 Bariatric surgery status; Z90.49 Acquired absence of other specified parts of digestive tract; Z98.890 Other specified postprocedural states
CPT/HCPCS: 99284; 96374; 96361; 36415; 80053; 82150; 83605; 83690; 85025; 81001; 74177; Q9967; J2270

== ENCOUNTER → 2017-10-21 | Outpatient (CLI) | payer OTHER ==
--- NOTE | 2017-10-22 00:52 | MR ---
EXAMINATION TYPE: MR MRCP DATE OF EXAM: 10/21/2017 COMPARISON: NONE HISTORY: Rt Upper Quad Pain Standard multiplanar, multisequence MRI departmental protocol Multiplanar, multisequence images of the abdomen were acquired. There are MRCP images. FINDINGS: The liver shows no focal defect. Spleen appears normal. There is no evidence of a pancreati c mass. Pancreatic duct is not dilated. There is no significant enlargement of the biliary tree. The intrahepatic bile ducts are not dilated. I see no evidence of a stricture. Gallbladder appears absent . The kidneys show no hydronephrosis. Kidneys have normal size and contour. There is no sign of retro peritoneal adenopathy. There is normal flow-void in the portal vein. There is normal flow-void in the celiac artery and the superior mesenteric artery. IMPRESSION: Normal MRCP exam. Cholecystectomy noted. No dilated ducts. No evidence of a stricture or filling defe ct. Normal pancreatic duct.
== END | disposition home or self-care (01) ==
LOC: RADMRIMAIN 07:11
PROVIDERS: ATTEND Internal Medicine Gastroenterology
DX: R10.11 Right upper quadrant pain (principal); Z90.49 Acquired absence of other specified parts of digestive tract
CPT/HCPCS: 74181

== ENCOUNTER → 2017-10-22 | Outpatient (CLI) | payer OTHER ==
[2017-10-22 15:09] LABS: Basophils % (A) 0 %; Eosinophils # (A) 0.2 k/uL (0-0.7); Eosinophils % (A) 3 %; HCT 43.7 % (34.0-46.0); HGB 14.2 gm/dL (11.4-16.0); Lymphocytes # (A) 1.6 k/uL (1.0-4.8); Lymphocytes % (A) 27 %; MCHC 32.4 g/dL (31.0-37.0); MCV 92.5 fL (80.0-100.0); Mean Platelet Volume 8.2; Monocytes # (A) 0.4 k/uL (0-1.0); Monocytes % (A) 6 %; Neutrophils # (A) 3.6 k/uL (1.3-7.7); Neutrophils % (A) 61 %; Platelet Count 231 k/uL (150-450); RBC 4.73 m/uL (3.80-5.40); RDW 14.2 % (11.5-15.5); WBC 5.9 k/uL (3.8-10.6)
[2017-10-22 15:26] LABS: ALT 128 U/L (9-52); AST 145 U/L (14-36); Albumin 4.5 g/dL (3.5-5.0); Alkaline Phosphatase 71 U/L (38-126); Anion Gap 12 mmol/L; Blood Urea Nitrogen 13 mg/dL (7-17); Calcium 10.2 mg/dL (8.4-10.2); Carbon Dioxide 26 mmol/L (22-30); Chloride 102 mmol/L (98-107); Glucose 121 mg/dL (74-99); Potassium 4.8 mmol/L (3.5-5.1); Sodium 140 mmol/L (137-145); Total Bilirubin 1.5 mg/dL (0.2-1.3); Total Protein 7.2 g/dL (6.3-8.2)
== END | disposition home or self-care (01) ==
LOC: LABWHC1 14:35
PROVIDERS: ATTEND Internal Medicine Gastroenterology
DX: R79.89 Other specified abnormal findings of blood chemistry (principal)
CPT/HCPCS: 36415; 80053; 85025

== ENCOUNTER → 2018-03-30 | Outpatient (CLI) | payer OTHER ==
--- NOTE | 2018-03-30 15:25 | CT ---
EXAMINATION TYPE: CT abdomen pelvis w con DATE OF EXAM: 03/30/2018 HISTORY: Bilateral lower quadrant pain. Vomiting. CT DLP: 1800.4mGycm Automated Exposure Control for Dose Reduction was Utilized. CONTRAST: CT scan of the abdomen and pelvis is performed with IV Contrast, patient injected with 100 mL of Isov ue M300. COMPARISON: CT abdomen and pelvis September 30, 2017 FINDINGS: LUNG BASES: No significant abnormality is appreciated. LIVER/GB: Cholecystectomy clips are redemonstrated. Liver remains low dense suggesting diffuse fatty infiltration. PANCREAS: No significant abnormality is seen. SPLEEN: No significant abnormality is seen. ADRENALS: No significant abnormality is seen. KIDNEYS: No significant abnormality is seen. BOWEL: Surgical clips epigastric region are presumed product of prior Wilfrid fundoplication surgery. Oral contrast reaches level of right colon. There is no suspicious small or large bowel dilatation. T here is moderate to severe wall thickening with focal fat stranding in the proximal sigmoid colon in the left lower quadrant anteriorly near axial image 53 consistent with acute diverticulitis. No well- formed fluid collection or abscess is seen. No pneumoperitoneum is noted. Because presence of moderat e wall thickening would advised colonoscopy follow up after treatment to rule out concentric neoplasm at this level. A few additional scattered diverticula throughout the left and sigmoid colon are pres ent. UTERUS/ADNEXA: Uterus is surgically absent. Pelvic phleboliths are seen bilaterally. Remnant ovary is noted axial image 70 stable in appearance from prior not suspiciously enlarged. LYMPH NODES: No greater than 1cm abdominal or pelvic lymph nodes are appreciated. OSSEOUS STRUCTURES: No significant abnormality is seen. OTHER: No significant additional abnormality is seen. IMPRESSION: CT findings consistent with fairly moderate focal acute diverticulitis centered in the pr oximal sigmoid colon anteriorly in the left lower quadrant of the abdomen as detailed above.
== END ==
LOC: RADCTMAIN 13:20
PROVIDERS: ATTEND Family Medicine
DX: R10.32 Left lower quadrant pain (principal); R11.10 Vomiting, unspecified
CPT/HCPCS: 74177; Q9967

== ENCOUNTER → 2018-07-13 | Outpatient (CLI) | payer OTHER ==
--- NOTE | 2018-07-13 10:23 | MR ---
EXAMINATION TYPE: MR knee RT wo con DATE OF EXAM: 07/13/2018 COMPARISON: NONE HISTORY: Right knee pain TECHNIQUE: Multiplanar, multisequence images of the knee is performed without IV contrast. FINDINGS: MEDIAL MENISCUS: There is increased signal centrally in the medial meniscus extending to inferior art icular surface coronal image 17, vertical signal noted sagittal image 7 through the central body. Ful l-thickness meniscal tear is suspected. LATERAL MENISCUS: Anterior and posterior horns are intact without tear. CRUCIATE LIGAMENTS: The anterior and posterior cruciate ligaments are intact and unremarkable. COLLATERAL LIGAMENTS: The medial collateral ligament and lateral collateral ligament complex are inta ct and unremarkable. EXTENSOR MECHANISM: Visualized quadriceps and patellar tendons are intact. EFFUSION: There is moderate size suprapatellar joint effusion. POPLITEAL CYST: There is moderate size popliteal/ceja cyst measuring almost 7 cm long axis sagittal image 9 with some thin septations. TRICOMPARTMENT SPACES: Mild to moderate tricompartment joint space loss is seen. No significant spurr ing is present. CARTILAGE: Mild fissuring and cartilaginous loss medial tibiofemoral compartment is present. BONE MARROW SIGNAL: No focal abnormal marrow signal is appreciated. OTHER: No additional significant abnormality is appreciated. IMPRESSION: 1. Full-thickness vertical tear central body medial meniscus with additional oblique full-thickness t ear through the posterior horn. 2. Mild to borderline moderate tricompartment degenerative changes most prominent patellofemoral comp artment. 3. Moderate suprapatellar joint effusion. 4. Moderate-sized popliteal cyst.
== END | disposition home or self-care (01) ==
LOC: RADMRIMAIN 06:27
PROVIDERS: ATTEND Orthopaedic Surgery
DX: S83.241A Other tear of medial meniscus, current injury, right knee, initial encounter (principal); M17.11 Unilateral primary osteoarthritis, right knee; M71.21 Synovial cyst of popliteal space [Baker], right knee

== ENCOUNTER → 2018-07-29 | Outpatient (CLI) | payer OTHER ==
[2018-07-29 16:17] LABS: Basophils % (A) 1 %; Eosinophils # (A) 0.2 k/uL (0-0.7); Eosinophils % (A) 3 %; HCT 51.7 % (34.0-46.0); HGB 16.8 gm/dL (11.4-16.0); Lymphocytes # (A) 1.7 k/uL (1.0-4.8); Lymphocytes % (A) 30 %; MCH 33.8 pg (25.0-35.0); MCHC 32.5 g/dL (31.0-37.0); MCV 104.1 fL (80.0-100.0); Macrocytosis Slight; Mean Platelet Volume 8.5; Monocytes # (A) 0.4 k/uL (0-1.0); Monocytes % (A) 7 %; Neutrophils # (A) 3.2 k/uL (1.3-7.7); Neutrophils % (A) 58 %; Platelet Count 161 k/uL (150-450); RBC 4.97 m/uL (3.80-5.40); RDW 13.4 % (11.5-15.5); WBC 5.6 k/uL (3.8-10.6)
[2018-07-29 16:25] LABS: Potassium 4.9 mmol/L (3.5-5.1)
== END | disposition home or self-care (01) ==
LOC: LABPAT 15:21
PROVIDERS: ATTEND Orthopaedic Surgery
DX: Z01.818 Encounter for other preprocedural examination (principal); M23.91 Unspecified internal derangement of right knee; Z01.812 Encounter for preprocedural laboratory examination
CPT/HCPCS: 36415; 80051; 85025; 93005

== ENCOUNTER 2018-07-30 13:32 | Day surgery (SDC) | payer OTHER ==
[2018-07-28 16:20] VITALS: BMI 35.5
--- NOTE | 2018-07-29 17:07 | HP ---
HISTORY AND PHYSICAL REASON FOR ADMISSION: Surgery is 07/30/2018. HISTORY OF PRESENT ILLNESS: Lien Alvarenga is a 48-year-old patient seen with progressive right knee pain. We discussed treatment options. She elected to proceed with arthroscopy. Consent was obtained. PAST MEDICAL HISTORY: Hypertension. PAST SURGICAL HISTORY: Cholecystectomy, bilateral shoulder surgery, lap band surgery. MEDICATIONS: Toprol. ALLERGIES: CODEINE. SOCIAL HISTORY: She denies tobacco use. PHYSICAL EXAMINATION: Evaluation of the right knee range of motion is 0 to 120 degrees. Mild effusion. Tenderness medial joint line. Tenderness lateral joint line. Positive medial Josiah's. Positive lateral Josiah's. +1 Keaton's. Collateral ligaments are stable. Distal neurovascular exam is intact. RADIOGRAPHS: Radiographs of the right knee revealed mild osteoarthritis. MRI right knee revealed medial meniscal tear and joint effusion. IMPRESSION: 1. Internal derangement, right knee with medial meniscal tear. 2. Hypertension. PLAN: Right knee arthroscopy with partial meniscectomy and debridement. Surgery is scheduled for 07/30/2018. MMODL / IJN: [id number] /
[~2018-07-30 13:32] MED LIST changes: -HEPARIN SODIUM,PORCINE 5,000 UNIT/ML 1 ML VIAL SQ ONE; -HYDROmorphone 0.5 MG/0.5 ML SYRINGE IVP PRN; +LACTATED RINGERS 1,000 ML IV SCH; +LIDOCAINE 1% 20 ML VIAL (10MG/ML) FOR IV START INTRADERMA PRN; +MIDAZOLAM (PF) 2 MG/2 ML VIAL IV PRN; -ONDANSETRON 4 MG/2 ML VIAL IVP ONE; +fentaNYL (PF) 50 MCG/ML 2 ML AMP IV PRN
[2018-07-30 14:06] VITALS: RESP 16; TEMP 96.9
[2018-07-30] MEDS: ONDANSETRON 4 MG/2 ML VIAL IVP ONE ×2 (14:14→17:07)
[2018-07-30] MEDS ORDERED: SCOPOLAMINE 1.5MG/72HR PATCH TRANSDERM ONE (14:14)
[2018-07-30] MEDS ORDERED: fentaNYL (PF) 50 MCG/ML 2 ML AMP ONE (16:09)
[2018-07-30] MEDS ORDERED: KETOROLAC 30 MG/ML 1 ML VIAL ONE (16:09)
[2018-07-30] MEDS ORDERED: LIDOCAINE 1% INJ 10MG/ML (20 ML MDV) ONE (16:09)
[2018-07-30] MEDS ORDERED: SUCCINYLCHOLINE CHLORIDE 100 MG/5 ML SYR IV ONE (16:09)
[2018-07-30] MEDS ORDERED: MIDAZOLAM 2 MG/2 ML VIAL ONE (16:09)
[2018-07-30] MEDS ORDERED: PROPOFOL 10 MG/ML 20 ML VIAL IV ONE (16:09)
[2018-07-30] MEDS ORDERED: BUPIVACAINE (PF) 0.25% 30 ML VIAL SQ ONE (16:12)
--- NOTE | 2018-07-30 17:03 | P.OP ---
Date of Procedure: 07/30/18 Preoperative Diagnosis: Internal derangement right knee Postoperative Diagnosis: 1. Tear medial meniscus right knee 2. Grade 2/3 chondromalacia medial femoral condyle right knee 3. Reactive synovitis medial, lateral and super patellar compartments right knee Procedure(s) Performed: 1. Arthroscopic partial medial meniscectomy right knee 2. Arthroscopic chondroplasty medial femoral condyle right knee 3. Arthroscopic partial synovectomy medial, lateral and suprapatellar compartments right knee Anesthesia: JEREMIAHA, local Surgeon: Leonel Hager Estimated Blood Loss (ml): 6 Pathology: none sent Condition: stable Disposition: PACU Indications for Procedure: 48-year-old patient seen with progressive right knee pain. After treatment options discussed, she elected to proceed with arthroscopy. Operative Findings: see description of procedure Description of Procedure: Patient was taken to the operative suite. Patient underwent a general anesthetic by the department of anesthesia. Patient was given preoperative antibiotics. The right lower extremity was placed in a well-padded arthroscopic leg harper. The right leg was prepped and draped in the normal sterile orthopedic fashion. A lateral parapatellar and suprapatellar incision was made. Trochars were inserted. Arthroscopy was initiated. Suprapatellar pouch revealed diffuse thick reactive synovitis. The patellofemoral joint appeared to articulate congruently. There was grade 1 chondromalacia of the patella with no osteochondral tears present. The scope was guided into the medial gutter. No loose bodies or plica were identified. The scope was then guided into the medial compartment. A medial parapatellar incision was made. Trocar inserted followed by probe. There was a complex tear involving the posterior horn of the medial meniscus. There were grade 2/3 chondromalacia changes medial femoral condyle with with osteochondral tears present. There was thick reactive synovitis anteriorly. I performed a partial medial meniscectomy down to stable tissue. I performed a chondroplasty of the medial femoral condyle down to stable tissue. I performed a partial synovectomy decompressing the reactive synovitis. The residual meniscus was stable. There was good decompression of the synovitis. The residual osteochondral surface medial femoral condyle was stable. Scope and probe were then guided into the intercondylar notch. Cruciates were identified, probed and found to be stable. The scope and probe were then guided into lateral compartment. There was some mild fraying of the posterior horn lateral meniscus. There was a small area of grade 1 chondromalacia tibial plateau. There was some reactive some ice anteriorly. A motorize shaver was utilized to debride out the superficial fraying of the posterior horn lateral meniscus. I performed a partial synovectomy decompressing reactive synovitis anteriorly. There was good decompression of the synovitis. The scope was in guided back into the suprapatellar compartment. I reduced a motorized shaver into the super compartment. I debrided piecemeal fragments of meniscus. I performed partial synovectomy. Shaver was removed. There was good decompression of the synovitis and super compartment. Instruments were now removed from the joint. The joint was infiltrated with .25% Marcaine. Steri-Strips were applied to the portal sites. Sterile dressings were applied. The patient was placed into a MURRAY hose. No tourniquet was utilized. The patient was awakened, transferred to a bed and taken to recovery stable satisfactory condition.
[2018-07-30] MEDS: HYDROmorphone 0.5 MG/0.5 ML SYRINGE IVP PRN ×4 (17:07→17:32)
[2018-07-30 18:32] VITALS: BP 119/81; PULSE 54
== END 2018-07-30 19:02 | disposition home or self-care (01) ==
LOC: OR 13:32
PROVIDERS: ATTEND Orthopaedic Surgery
DX: S83.231A Complex tear of medial meniscus, current injury, right knee, initial encounter (principal); M22.41 Chondromalacia patellae, right knee; M94.261 Chondromalacia, right knee; M65.861 Other synovitis and tenosynovitis, right lower leg; M17.11 Unilateral primary osteoarthritis, right knee; I10 Essential (primary) hypertension; K21.9 Gastro-esophageal reflux disease without esophagitis; Z79.899 Other long term (current) drug therapy; Z88.5 Allergy status to narcotic agent; Z98.84 Bariatric surgery status; Z90.49 Acquired absence of other specified parts of digestive tract
CPT/HCPCS: 29881; J2250 ×2; J1100; J2405; J2001; J3010; J1885; J0330; J2704; J1170; J0690

== ENCOUNTER → 2022-05-23 | Outpatient (CLI) | payer OTHER ==
--- NOTE | 2022-05-24 06:54 | US ---
EXAMINATION TYPE: US liver DATE OF EXAM: 05/23/2022 COMPARISON: CT abdomen and pelvis March 30, 2018 CLINICAL HISTORY: R94.5 ABN LIVER FUNCTION TESTS. Abnormal liver function tests. TECHNIQUE: Multiple sonographic images of the right upper quadrant are obtained. FINDINGS: EXAM MEASUREMENTS: Liver Length: 16.7 cm Gallbladder Wall: Surgically absent CBD: .5 cm Right Kidney: 9.1 x 4.5 x 4.2 cm BLACKTOP SPREADER NOTES: Pancreas: Obscured by bowel gas Liver: Increased attenuation Gallbladder: Surgically absent Evidence for sonographic Ferguson's sign: No CBD: wnl Right Kidney: wnl Visualized pancreas shows no worrisome mass or ductal dilatation. Significant portions obscured by ov erlying bowel gas. IVC seen near the hepatic dome. There is no aneurysmal change in the visualized pr oximal and mid abdominal aorta. Visualized liver is heterogeneously hyperechoic. Evaluation for focal mass is suboptimal due to the heterogeneity. No new ascites noted. No right-sided hydronephrosis. Ga llbladder surgically absent. No biliary dilatation is evident. IMPRESSION: Persistent heterogeneous hyperechoic appearance of liver consistent with diffuse fatty in filtration and/or underlying hepatocellular disease.
--- NOTE | 2022-05-24 11:14 | MM ---
Reason for Exam: Screening (asymptomatic). Last mammogram was performed 5 year(s) and 8 month(s) ago. Patient History: Menarche at age 13. First Full-Term at age 17. Hysterectomy at age 48. Postmenopausal. Hormonal Contraceptives, starting at age 37 for 2 years, 1 month. Mother had breast cancer, age 67. Risk Values: Shara 5 year model risk: 1.9%. NCI Lifetime model risk: 14.0%. Prior Study Comparison: 09/02/2007 Bilateral Diagnostic Mammogram, [facility]. 01/03/2014 Bilateral Screening Mammogram, [facility]. 09/23/2016 Bilateral Screening Mammogram, [facility]. Tissue Density: The breast tissue is heterogeneously dense. This may lower the sensitivity of mammography. Findings: Analyzed By CAD. There is no suspicious group of microcalcifications or new suspicious mass in either breast. Benign-appearing calcifications within both breasts. Overall Assessment: Benign, BI-RAD 2 Management: Screening Mammogram of both breasts in 1 year. A clinical breast exam by your physician is recommended on an annual basis and results should be correlated with mammographic findings. Electronically signed and approved by: Vincent Gibbons D.O.
== END | disposition home or self-care (01) ==
LOC: RADUSWWP 15:32
PROVIDERS: ATTEND Family Medicine
DX: Z12.31 Encounter for screening mammogram for malignant neoplasm of breast (principal); R94.5 Abnormal results of liver function studies; Z78.0 Asymptomatic menopausal state; Z80.3 Family history of malignant neoplasm of breast
CPT/HCPCS: 76705; 77063; 77067

== ENCOUNTER 2024-10-12 17:37 | Emergency (ER) | payer OTHER ==
[2024-10-12 17:48] VITALS: TEMP 98.4
--- NOTE | 2024-10-12 18:48 | ED ---
Lower Extremity Injury HPI - General Chief Complaint: Extremity Injury, Lower Stated Complaint: IHS-L hip/knee injury Time Seen by Provider: 10/12/24 18:35 Source: patient, RN notes reviewed Mode of arrival: wheelchair Limitations: no limitations - History of Present Illness Initial Comments: 54-year-old female presents emergency department for complaints of nontraumatic left knee pain. 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 She denies twisting her knee or falling onto it. States that the pain radiates from her knee up into her hip. Patient does have a history of meniscus injuries and repair. No other acute complaints at this time. - Related Data Home Medications Medication Instructions Recorded Confirmed Metoprolol Succinate (ER) [Toprol 50 mg PO HS 09/05/15 07/30/18 XL] Omeprazole [PriLOSEC] 40 mg PO DAILY PRN 07/28/18 07/30/18 Previous Rx's Medication Instructions Recorded HYDROcodone/APAP 7.5-325MG [[place] 1 each PO Q6HR PRN #28 tab 07/30/18 7.5] Ibuprofen [Motrin] 800 mg PO Q8HR PRN #30 tab 10/12/24 Allergies Allergy/AdvReac Type Severity Reaction Status Date / Time codeine AdvReac Nausea & Verified 10/12/24 17:47 Vomiting and itching EPIDURAL Allergy Rash/Hives Uncoded 10/12/24 17:47 Review of Systems ROS Statement: Those systems with pertinent positive or pertinent negative responses have been documented in the HPI. ROS Other: All systems not noted in ROS Statement are negative. Past Medical History Past Medical History: Cancer, Hypertension Additional Past Medical History / Comment(s): torn meniscus rt knee,PCOS, urinary incontinence,uterine CA History of Any Multi-Drug Resistant Organisms: None Reported Past Surgical History: Bariatric Surgery, Cholecystectomy, Hernia Repair Additional Past Surgical History / Comment(s): left rotator cuff, bicep tear right arm, lap band-later removed,lali shoulder repairs x2,lt knee meniscus repair Past Anesthesia/Blood Transfusion Reactions: Motion Sickness, Postoperative Nausea & Vomiting (PONV) Additional Past Anesthesia/Blood Transfusion Reaction / Comment(s): mother-ileus post op Past Psychological History: No Psychological Hx Reported Past Alcohol Use History: Occasional Past Drug Use History: None Reported - Past Family History Mother Family Medical History: Cancer Additional Family Medical History / Comment(s): breast General Exam Limitations: no limitations General appearance: alert, in no apparent distress Neck exam: Present: normal inspection. Absent: tenderness, meningismus, lymphadenopathy Respiratory exam: Present: normal lung sounds bilaterally. Absent: respiratory distress, wheezes, rales, rhonchi, stridor Cardiovascular Exam: Present: regular rate, normal rhythm, normal heart sounds. Absent: systolic murmur, diastolic murmur, rubs, gallop, clicks GI/Abdominal exam: Present: soft, normal bowel sounds. Absent: distended, tenderness, guarding, rebound, rigid Left Knee exam: Present: full ROM, tenderness. Absent: swelling, abrasion, deformity, crepitus Back exam: Present: normal inspection Neurological exam: Present: alert, oriented X3, CN II-XII intact Course Vital Signs 10/12/24 10/12/24 17:45 20:21 Temperature 98.4 F Pulse Rate 48 L 49 L Respiratory 18 17 Rate Blood Pressure 161/101 207/90 O2 Sat by Pulse 96 97 Oximetry Medical Decision Making - Medical Decision Making Was pt. sent in by a medical professional or institution (, PA, TRAIN ENGINEER, urgent care, hospital, or custodial...) When possible be specific @ -No Did you speak to anyone other than the patient for history (EMS, parent, family, police, friend...)? What history was obtained from this source @ -No Did you review nursing and triage notes (agree or disagree)? Why? @ -I reviewed and agree with nursing and triage notes Were old charts reviewed (outside hosp., previous admission, EMS record, old EKG, old radiological studies, urgent care reports/EKG's, custodial records)? Report findings @ -No old charts were reviewed Differential Diagnosis (chest pain, altered mental status, abdominal pain women, abdominal pain men, vaginal bleeding, weakness, fever, dyspnea, syncope, headache, dizziness, GI bleed, back pain, seizure, CVA, palpatations, mental health, musculoskeletal)? @Differential Musculoskeletal Muscular strain, contusion, ligament sprain, fracture, arthritis, septic arthritis, bursitis, cellulitis, muscle spasm, nerve compression, DVT, arterial occlusion, herpes zoster, electrolyte abnormality, tumor.... This is not meant to be in all inclusive list EKG interpreted by me (3pts min.). @ -None X-rays interpreted by me (1pt min.). @ -X-ray of the left knee completed with moderate osteoarthritis with no evidence of acute osseous pathology CT interpreted by me (1pt min.). @ -None done U/S interpreted by me (1pt. min.). @ -None done What testing was considered but not performed or refused? (CT, X-rays, U/S, labs)? Why? @ -None What meds were considered but not given or refused? Why? @ -None Did you discuss the management of the patient with other professionals (professionals i.e. , PA, TRAIN ENGINEER, lab, RT, psych nurse, licensed social worker, batch plant operator, teacher, health promotion officer, mental health case manager)? Give summary @ -No Was smoking cessation discussed for >3mins.? @ -No Was critical care preformed (if so, how long)? @ -No Were there social determinants of health that impacted care today? How? (Homelessness, low income, unemployed, alcoholism, drug addiction, transportation, low edu. Level, literacy, decrease access to med. care, senior living, rehab)? @ -No Was there de-escalation of care discussed even if they declined (Discuss DNR or withdrawal of care, Hospice)? DNR status @ -No What co-morbidities impacted this encounter? (DM, HTN, Smoking, COPD, CAD, Cancer, CVA, ARF, Chemo, Hep., AIDS, mental health diagnosis, sleep apnea, morbid obesity)? @ -None Was patient admitted / discharged? Hospital course, mention meds given and route, prescriptions, significant lab abnormalities, going to OR and other pertinent info. @ -Discharge. 54 year old female presenting to the emergency room for complaints of left knee pain. There are no deformities on physical exam. Neurovascularly intact. She is provided with dose of Toradol for pain relief. X-ray completed reveals no acute osseous abnormality. Patient provided with an Zheng wrap instructed to follow-up with primary care provider and processing specialist. Recommend continued supportive treatment at home. Case discussed with Dr. Catherine Undiagnosed new problem with uncertain prognosis? @ -No Drug Therapy requiring intensive monitoring for toxicity (Heparin, Nitro, Insulin, Cardizem)? @ -No Were any procedures done? @ -No Diagnosis/symptom? @ -knee sprain Acute, or Chronic, or Acute on Chronic? @ -acute Uncomplicated (without systemic symptoms) or Complicated (systemic symptoms)? @ -uncomplicated Side effects of treatment? @ -No Exacerbation, Progression, or Severe Exacerbation? @ -No Poses a threat to life or bodily function? How? (Chest pain, [place], [place], pneumonia, PE, COPD, DKA, ARF, appy, cholecystitis, CVA, Diverticulitis, Homicidal, Suicidal, threat to staff... and all critical care pts) @ -No Disposition Clinical Impression: Knee sprain Disposition: HOME SELF-CARE Condition: Good Instructions (If sedation given, give patient instructions): Knee Sprain (ED) Additional Instructions: Please return to the Emergency Department if symptoms worsen or any other concerns. Prescriptions: Ibuprofen [Motrin] 800 mg PO Q8HR PRN #30 tab PRN Reason: Pain Is patient prescribed a controlled substance at d/c from ED?: No Referrals: Na Moyer MD [Primary Care Provider] - 1-2 days Time of Disposition: 19:44
[2024-10-12] MEDS: KETOROLAC 15 MG/ML 1 ML VIAL IM STA (18:51)
--- NOTE | 2024-10-12 19:08 | XR ---
EXAMINATION TYPE: XR knee complete LT DATE OF EXAM: 10/12/2024 7:02 PM INDICATION: Patient age:Female; 54 years old; Reason for study: sprained while at work, pain; PHH. pain COMPARISON: Left knee radiograph 07/17/2015 TECHNIQUE: The Left knee(s) was examined in Frontal, lateral and oblique projections. FINDINGS: No acute fracture or dislocation. Tricompartmental joint space narrowing with marginal os teophytosis. Most pronounced involving the medial tibiofemoral joint space. Mild soft tissue swelling anterior knee. Small suprapatellar joint effusion. IMPRESSION: 1. No acute osseous pathology. 2. Moderate tricompartmental osteoarthritic changes. Most pronounced involving the medial tibiofemora l joint space. 3. Mild soft tissue edema of the anterior knee with small suprapatellar joint effusion. [facility], , 10/12/2024 7:05 PM
[2024-10-12 20:22] VITALS: BP 207/90; PULSE 49; RESP 17
== END 2024-10-12 20:23 | disposition home or self-care (01) ==
LOC: EC 17:37
DX: S83.92XA Sprain of unspecified site of left knee, initial encounter (principal); Z88.5 Allergy status to narcotic agent; Z88.8 Allergy status to other drugs, medicaments and biological substances; X58.XXXA Exposure to other specified factors, initial encounter
CPT/HCPCS: 73562; 99283; 96372; L1830; J1885